=== PATIENT | female | born 1975 | race African-American/Black ===

== ENCOUNTER 2018-05-01 17:34 | Emergency (ER) | payer MEDICARE, MEDICAID ==
[~2018-05-01] VITALS: Ht 165.1 cm; Wt 58.0 kg
[2018-05-01 20:41] LABS: BASOPHILS # (AUTO) 0.1 X10'3 (0-0.2); BASOPHILS % (AUTO) 0.8 % (0-1); EOSINOPHILS # (AUTO) 0.2 X10'3 (0-0.9); EOSINOPHILS % (AUTO) 2.6 % (0-6); HEMATOCRIT 34.6 % (35.0-45.0); HEMOGLOBIN 11.7 g/dl (12.0-16.0); LYMPHOCYTES # (AUTO) 3.5 X10'3 (1.1-4.8); LYMPHOCYTES % (AUTO) 53.3 % (21-51); MEAN CORPUSCULAR HEMOGLOBIN 29.2 PG (27.0-31.0); MEAN CORPUSCULAR HGB CONC 33.7 % (33.0-36.5); MEAN CORPUSCULAR VOLUME 86.8 FL (78-98); MEAN PLATELET VOLUME 9.1 FL (7.4-10.4); MONOCYTES # (AUTO) 0.5 X10'3 (0-0.9); MONOCYTES % (AUTO) 7.5 % (2-12); NEUTROPHILS # (AUTO) 2.4 X10'3 (1.8-7.7); NEUTROPHILS % (AUTO) 35.8 % (42-75); PLATELET COUNT 209 X10'3 (140-440); RED BLOOD COUNT 3.99 X10'6 (4.20-5.60); RED CELL DISTRIBUTION WIDTH 15.1 % (11.5-14.5); WHITE BLOOD COUNT 6.6 X10'3 (4.5-11.0)
[2018-05-01 20:50] LABS: PROTHROMBIN TIME 10.7 SECONDS (9.0-12.0)
[2018-05-01 20:54] LABS: ALANINE AMINOTRANSFERASE 26 U/L (12-78); ALBUMIN 3.4 G/DL (3.4-5.0); ALBUMIN/GLOBULIN RATIO 0.8 (1.1-1.5); ALKALINE PHOSPHATASE 52 IU/L (46-116); ANION GAP 8 (8-16); ASPARTATE AMINO TRANSFERASE 20 U/L (10-37); BILIRUBIN,TOTAL 0.3 MG/DL (0.1-1.0); BLOOD UREA NITROGEN 20 MG/DL (7-18); BUN/CREATININE RATIO 18.7 (6.6-38.0); CALCIUM 8.9 MG/DL (8.5-10.1); CHLORIDE 105 MMOL/L (99-107); CREATININE 1.07 MG/DL (0.40-0.90); SODIUM 141 MMOL/L (135-145); TOTAL CARBON DIOXIDE 28.2 MMOL/L (24-32); TOTAL PROTEIN 7.6 G/DL (6.4-8.2); eGFR 57 ML/MIN
[2018-05-01 21:03] LABS: GLUCOSE 75 MG/DL (70-104)
[2018-05-01 21:21] LABS: URINE HCG NEGATIVE (NEG)
[2018-05-01 21:24] LABS: CLARITY,URINE CLEAR (Clear); COLOR,URINE YELLOW (Yellow); GLUCOSE, URINE NEGATIVE (Neg); KETONES,URINE NEGATIVE (Neg); LEUKOCYTE ESTERASE ,URINE NEGATIVE (Neg); NITRITES, URINE NEGATIVE (Neg); OCCULT BLOOD,URINE LARGE (Neg); PROTEIN,URINE TRACE mg/dl (Neg); UROBILINOGEN,URINE 0.2 E.U/dL (0.2-1.0)
[2018-05-01] MEDS ORDERED: morphine 4 MG/ML inj SYRINge IV ONE (21:25)
[2018-05-01] MEDS ORDERED: ondansetron/PF 4mg/2ml inj IV ONE (21:25)
[2018-05-01 21:28] LABS: UA COLLECTION TYPE CLN CATCH MIDSTREAM
[2018-05-01 21:33] VITALS: BP 185/119
[2018-05-01] MEDS ORDERED: iohexol 300mg/ml 100ml inj. ONE (21:42)
[2018-05-01 22:03] LABS: MUCUS STRANDS MANY /LPF (Neg); SQUAMOUS EPITHELIAL CELL,UR MANY /LPF (FEW)
[2018-05-01 22:04] LABS: TRICHOMONAS,URINE FEW /HPF (NEGATIVE); WBC,URINE 20-30 /HPF (0-4)
[2018-05-01 22:05] LABS: BACTERIA,URINE FEW /HPF (Neg)
[2018-05-01] MEDS ORDERED: HYDR-569 PO (23:15)
== END 2018-05-01 23:36 | disposition home or self-care (01) ==
LOC: ER 17:35
DX: K40.90 Unilateral inguinal hernia, without obstruction or gangrene, not specified as recurrent (principal); I10 Essential (primary) hypertension; F17.200 Nicotine dependence, unspecified, uncomplicated; Z98.51 Tubal ligation status; Z88.8 Allergy status to other drugs, medicaments and biological substances
CPT/HCPCS: 36415; 74177; 80053; 81001; 81025; 85025; 85610; 96374; 96375; 99285; J2270; J2405; J7030; Q9967

== ENCOUNTER 2020-12-09 01:15 | Inpatient (IN) | payer MEDICAID, MEDICARE ==
[2020-12-09] VITALS (9 sets, daily range): BP systolic 137–193; BP diastolic 80–124
[~2020-12-09] VITALS: Ht 165.1 cm; Wt 80.0 kg
[~2020-12-09 01:15] MED LIST: HYDR-4383 PO
--- NOTE | 2020-12-09 03:02 | NUR ---
PER LAB BLOOD NEEDS TO BE REDRAWN
[2020-12-09] MEDS ORDERED: normal saline 1000ML IV soln IV ONE (05:05)
[2020-12-09] MEDS ORDERED: vancomycin/NS 1 GM ADD-VANTAGE 250 ML IV ONE (05:05)
--- NOTE | 2020-12-09 05:19 | NUR ---
ATTEMPTED TO START IV X [address] GARCIA NOTIFIED AND CHARGE NURSE WILL ATTEMPT US GUIDED IV, WHEN ABLE.
[2020-12-09 06:00] LABS: BASOPHILS # (AUTO) 0.1 X10'3 (0-0.2); EOSINOPHILS # (AUTO) 0.1 X10'3 (0-0.9); EOSINOPHILS % (AUTO) 1.2 % (0-6); HEMATOCRIT 26.3 % (35.0-45.0); HEMOGLOBIN 8.6 g/dl (12.0-16.0); LYMPHOCYTES # (AUTO) 2.6 X10'3 (1.1-4.8); LYMPHOCYTES % (AUTO) 25.2 % (21-51); MEAN CORPUSCULAR HEMOGLOBIN 27.3 PG (27.0-31.0); MEAN CORPUSCULAR HGB CONC 32.6 g/dL (33.0-36.5); MEAN CORPUSCULAR VOLUME 83.9 FL (78-98); MEAN PLATELET VOLUME 8.6 FL (7.4-10.4); MONOCYTES # (AUTO) 0.8 X10'3 (0-0.9); MONOCYTES % (AUTO) 7.5 % (2-12); NEUTROPHILS # (AUTO) 6.8 X10'3 (1.8-7.7); NEUTROPHILS % (AUTO) 65.1 % (42-75); PLATELET COUNT 358 X10'3 (140-440); RED BLOOD COUNT 3.14 X10'6 (4.20-5.60); RED CELL DISTRIBUTION WIDTH 15.9 % (11.5-14.5); WHITE BLOOD COUNT 10.4 X10'3 (4.5-11.0)
[2020-12-09 06:11] LABS: PARTIAL THROMBOPLASTIN TIME 29 SECONDS (22-32)
[2020-12-09 06:14] LABS: ALANINE AMINOTRANSFERASE 8 U/L (12-78); ALBUMIN 2.2 G/DL (3.4-5.0); ALBUMIN/GLOBULIN RATIO 0.4 (1.1-1.5); ALKALINE PHOSPHATASE 80 IU/L (46-116); ANION GAP 6 (8-16); ASPARTATE AMINO TRANSFERASE 11 U/L (10-37); BILIRUBIN,TOTAL 0.3 MG/DL (0.1-1.0); BLOOD UREA NITROGEN 10 MG/DL (7-18); BUN/CREATININE RATIO 7.9 (6.6-38.0); CALCIUM 8.4 MG/DL (8.5-10.1); CHLORIDE 102 MMOL/L (99-107); CREATININE 1.27 MG/DL (0.40-0.90); ETHANOL < 0.010 GM/DL (0.0-0.010); GLUCOSE 93 MG/DL (70-104); MAGNESIUM 1.8 MG/DL (1.5-2.4); SODIUM 138 MMOL/L (135-145); TOTAL CARBON DIOXIDE 29.6 MMOL/L (24-32); TOTAL PROTEIN 7.9 G/DL (6.4-8.2); eGFR 56 ML/MIN
[2020-12-09 06:24] LABS: POTASSIUM 2.9 MMOL/L (3.5-5.1)
[2020-12-09] MEDS ORDERED: potassium chloride 10mEq ER tablet PO STA (06:25)
[2020-12-09] MEDS ORDERED: potassium Cl 20 mEq SR tablet PO STA (06:55)
[2020-12-09] MEDS ORDERED: iohexol 350MG/ML 100ml bottle IV ONE (07:05)
--- NOTE | 2020-12-09 07:14 | NUR ---
PT TO CT.
--- NOTE | 2020-12-09 07:32 | NUR ---
pt back in the room.
[2020-12-09 07:48] LABS: URINE AMPHETAMINE SCREEN POSITIVE (Neg); URINE BARBITUATE SCREEN NEGATIVE (Neg); URINE BENZODIAZEPINES SCREEN NEGATIVE (Neg); URINE CANNABINOID SCREEN NEGATIVE (Neg); URINE COCAINE SCREEN NEGATIVE (Neg); URINE METHADONE SCREEN NEGATIVE (Neg); URINE OPIATE SCREEN POSITIVE (Neg); URINE PHENCYCLIDINE SCREEN NEGATIVE (Neg)
[2020-12-09] MEDS ORDERED: piperacillin/tazo 3.375gm/50ml 50 ML IV ONE (07:50)
[2020-12-09] MEDS ORDERED: acetaminophen 325mg tablet PO PRN (08:05)
[2020-12-09] MEDS ORDERED: mag hydrox/Alum hydrox/simeth 30ml oral suspension PO PRN (08:05)
[2020-12-09] MEDS ORDERED: morphine 2 MG/ML inj. syringe IV PRN ×2 (08:05→11:40)
[2020-12-09] MEDS ORDERED: ondansetron/PF 4mg/2ml inj IV PRN ×2 (08:05→11:40)
[2020-12-09] MEDS ORDERED: magnesium hydroxide 30ml (MOM) UD suspension PO PRN (08:05)
--- NOTE | 2020-12-09 08:32 | NUR ---
SOCIAL PROFESSIONALS AT BEDSIDE.
[2020-12-09 09:22] LABS: BASOPHILS % (AUTO) 0.4 % (0-1); EOSINOPHILS # (AUTO) 0.1 X10'3 (0-0.9); EOSINOPHILS % (AUTO) 1.1 % (0-6); HEMATOCRIT 24.8 % (35.0-45.0); LYMPHOCYTES # (AUTO) 2.6 X10'3 (1.1-4.8); LYMPHOCYTES % (AUTO) 23.6 % (21-51); MEAN CORPUSCULAR HGB CONC 32.4 g/dL (33.0-36.5); MEAN CORPUSCULAR VOLUME 83.2 FL (78-98); MEAN PLATELET VOLUME 8.2 FL (7.4-10.4); MONOCYTES # (AUTO) 0.9 X10'3 (0-0.9); MONOCYTES % (AUTO) 7.8 % (2-12); NEUTROPHILS # (AUTO) 7.5 X10'3 (1.8-7.7); NEUTROPHILS % (AUTO) 67.1 % (42-75); PLATELET COUNT 329 X10'3 (140-440); RED BLOOD COUNT 2.98 X10'6 (4.20-5.60); RED CELL DISTRIBUTION WIDTH 15.7 % (11.5-14.5); WHITE BLOOD COUNT 11.2 X10'3 (4.5-11.0)
[2020-12-09] MEDS: normal saline 1000ml 1,000 ML IV SCH ×2 (09:32→21:11)
[2020-12-09 09:44] LABS: ALBUMIN 2.1 G/DL (3.4-5.0); ANION GAP 8 (8-16); BLOOD UREA NITROGEN 9 MG/DL (7-18); CALCIUM 7.8 MG/DL (8.5-10.1); CHLORIDE 103 MMOL/L (99-107); CREATININE 1.13 MG/DL (0.40-0.90); GLUCOSE 89 MG/DL (70-104); POTASSIUM 3.2 MMOL/L (3.5-5.1); SODIUM 140 MMOL/L (135-145); TOTAL CARBON DIOXIDE 28.8 MMOL/L (24-32); eGFR 64 ML/MIN
[2020-12-09] MEDS ORDERED: BUPIVAcaine/PF 2.5 mg/ml (0.25%) 30ml vial ONE (11:35)
--- NOTE | 2020-12-09 11:35 | NUR ---
Called report to Ameya Garsia RN to give report.
[2020-12-09] MEDS ORDERED: ringers solution, lacted 1,000 ML IV SCH (11:40)
[2020-12-09] MEDS ORDERED: proCHLORperazine 10 MG/2 ml inj IV PRN (11:40)
[2020-12-09] MEDS ORDERED: morphine 4 MG/ML inj SYRINge IV PRN (11:40)
[2020-12-09] MEDS ORDERED: meperidine/PF 25mg/ml syringe IV PRN ×3 (11:40)
--- NOTE | 2020-12-09 11:44 | NUR ---
patient to OR.OR staff at bedside.
[2020-12-09] MEDS ORDERED: sevoflurane 250ml liquid IH ONE (12:07)
[2020-12-09] MEDS ORDERED: midazolam 1 mg/ML 2ml injection ONE (12:11)
[2020-12-09] MEDS ORDERED: propofol inj 20 ML IV ONE (12:13)
[2020-12-09] MEDS ORDERED: fentaNYL /PF 50mcg/ml 5ml ampule ONE (12:13)
--- NOTE | 2020-12-09 12:51 | NUR ---
Received from OR via , accompanied by Anesthesiologist DR SHAH and report given by Anesthesiolgist. AWAKENS TO VOICE. VITALS STABLE. DRESSING DI. CEE PAIN.
--- NOTE | 2020-12-09 13:51 | NUR ---
Report called to receiving nurse. Transferred via GURNEY Belongings . Special Issues communicated to receiving nurse. AWAKE AND ORIENTED. VITALS STABLE. DRESSING DI. STATES PAIN IMPROVING. TO ORTHO RM 4008 AT THIS TIME.
--- NOTE | 2020-12-09 14:05 | NUR ---
RECD PT FROM RECOVERY.
--- NOTE | 2020-12-09 15:33 | NUR ---
PAGED DR BROOKS RE: PAGER ID: [phone] MESSAGE: JOSEFA OCHOA. BP 187/117. NO BP MEDS. O/N DULCE 5199
[2020-12-09] MEDS ORDERED: SPIR25TA5 PO (15:36)
[2020-12-09] MEDS ORDERED: BENA40TA9 PO (15:36)
[2020-12-09] MEDS ORDERED: HYDR25TA5 PO (15:36)
[2020-12-09] MEDS ORDERED: CARV25TA2 PO (15:36)
[2020-12-09] MEDS ORDERED: AMLO10TA PO (15:36)
[2020-12-09] MEDS ORDERED: hydrALAZINE 20mg/ml inj. IV ONE (16:05)
[2020-12-09] MEDS: piperacillin/tazo 4.5gm/100ml 100 ML IV SCH (16:44)
[2020-12-09] MEDS: morphine 2 MG/ML inj. syringe IV PRN ×2 (16:46→22:59)
--- NOTE | 2020-12-09 18:36 | NUR ---
Problems reprioritized. Patient report given, questions answered & plan of care reviewed with CHLOE ARECHIGA.
--- NOTE | 2020-12-09 19:07 | NUR ---
Patient in room ORTHO 4007. I have received report from DULCE ARECHIGA and had the opportunity to ask questions and assume patient care.
[2020-12-09] MEDS: carVEDilol 12.5mg tablet PO SCH (19:42)
[2020-12-09] MEDS: vancomycin/NS 1 GM ADD-VANTAGE 250 ML IV SCH (19:42)
[2020-12-09] MEDS: lactobacillus rhamnosus 10,000 MMU CELLS/CAPSULE PO SCH (19:42)
[2020-12-10] MEDS: piperacillin/tazo 4.5gm/100ml 100 ML IV SCH (00:05)
[2020-12-10] MEDS: normal saline 1000ml 1,000 ML IV SCH (00:40)
[2020-12-10 02:00] VITALS: BP 156/81
[2020-12-10] MEDS: morphine 2 MG/ML inj. syringe IV PRN ×2 (05:19→09:04)
[2020-12-10 06:00] VITALS: BP 166/97
--- NOTE | 2020-12-10 06:15 | NUR ---
Problems reprioritized. Patient report given, questions answered & plan of care reviewed with DULCE ARECHIGA.
--- NOTE | 2020-12-10 06:38 | NUR ---
Patient in room ORTHO 4007. I have received report from CHLOE ARECHIGA and had the opportunity to ask questions and assume patient care.
--- NOTE | 2020-12-10 06:47 | NUR ---
PT REFUSING MORNING LAB DRAW. I TRIED TO EDUCATE HER ON THE IMPORTANCE OF LABS VALUES AND MONITORING. SHE STATES SHE WANTS THEM DONE IN AN HOUR. LAB AWARE
[2020-12-10] MEDS ORDERED: HYDROchlorothiazide 25mg tablet PO SCH (08:00)
[2020-12-10] MEDS ORDERED: enoxaparin 40mg/0.4ml syringe SUBCUT SCH (08:00)
[2020-12-10] MEDS ORDERED: lisinopril 20mg tablet PO SCH (08:00)
[2020-12-10] MEDS ORDERED: spironolactone 25 MG tablet PO SCH (08:00)
[2020-12-10] MEDS ORDERED: amLODIPine 5mg tablet PO SCH (08:00)
[2020-12-10] MEDS: vancomycin/NS 1 GM ADD-VANTAGE 250 ML IV SCH (08:34)
[2020-12-10 08:35] VITALS: BP_SYST 166
[2020-12-10] MEDS: carVEDilol 12.5mg tablet PO SCH (08:35)
[2020-12-10] MEDS: lactobacillus rhamnosus 10,000 MMU CELLS/CAPSULE PO SCH (08:35)
[2020-12-10 10:21] LABS: BASOPHILS # (AUTO) 0.1 X10'3 (0-0.2); BASOPHILS % (AUTO) 0.8 % (0-1); EOSINOPHILS # (AUTO) 0.2 X10'3 (0-0.9); EOSINOPHILS % (AUTO) 2.3 % (0-6); HEMATOCRIT 25.8 % (35.0-45.0); HEMOGLOBIN 8.7 g/dl (12.0-16.0); LYMPHOCYTES # (AUTO) 2.9 X10'3 (1.1-4.8); LYMPHOCYTES % (AUTO) 29.7 % (21-51); MEAN CORPUSCULAR HEMOGLOBIN 27.8 PG (27.0-31.0); MEAN CORPUSCULAR HGB CONC 33.5 g/dL (33.0-36.5); MEAN CORPUSCULAR VOLUME 83.1 FL (78-98); MEAN PLATELET VOLUME 8.4 FL (7.4-10.4); MONOCYTES # (AUTO) 0.6 X10'3 (0-0.9); NEUTROPHILS % (AUTO) 61.2 % (42-75); PLATELET COUNT 376 X10'3 (140-440); RED BLOOD COUNT 3.11 X10'6 (4.20-5.60); RED CELL DISTRIBUTION WIDTH 16.2 % (11.5-14.5); WHITE BLOOD COUNT 9.7 X10'3 (4.5-11.0)
[2020-12-10 10:26] LABS: ANION GAP 8 (8-16); BLOOD UREA NITROGEN 8 MG/DL (7-18); BUN/CREATININE RATIO 6.6 (6.6-38.0); CALCIUM 8.1 MG/DL (8.5-10.1); CHLORIDE 105 MMOL/L (99-107); CREATININE 1.21 MG/DL (0.40-0.90); GLUCOSE 116 MG/DL (70-104); SODIUM 140 MMOL/L (135-145); TOTAL CARBON DIOXIDE 27.5 MMOL/L (24-32); eGFR 59 ML/MIN
[2020-12-10 10:29] LABS: POTASSIUM 2.9 MMOL/L (3.5-5.1)
--- NOTE | 2020-12-10 10:41 | NUR ---
PAGED DR BROOKS RE: PAGER ID: [phone] MESSAGE: JOSEFA OCHOA. Karolina 2.9 NO PROTOCOL. AND PT WANTS TO LEAVE AMA. O/N DULCE 6703
[2020-12-10] MEDS ORDERED: magnesium Cl slow-release 64mg tablet PO PRN (10:45)
[2020-12-10] MEDS ORDERED: potassium Cl 40MEQ/1/2NS 520ml 520 ML IV PRN (10:45)
[2020-12-10] MEDS ORDERED: potassium Cl 20 mEq SR tablet PO PRN ×2 (10:45)
[2020-12-10] MEDS ORDERED: magnesium 4gm in 100ml NS 100 ML IV PRN (10:45)
--- NOTE | 2020-12-10 11:03 | NUR ---
NOTIFIED DR BROOKS RE: PAGER ID: [phone] MESSAGE: JOSEFA OCHOA. PT LEFT AMA. DULCE [id number]
--- NOTE | 2020-12-10 11:03 | NUR ---
PT LEFT AMA. STATED THAT SHE NEEDED TO LEAVE BECAUSE SHE NEEDED TO PAY RENT OR SHE WOULD BE HOMELESS. STATES [facility] WILL NOT GIVE HER ANYMORE TIME. I EDUCATED PT ON THE RISKS OF LEAVING AMA, EXPLAINED THAT SHE NEEDS IV ABX AND PAIN CONTROL. HER K IS ALSO CRITICAL 2.9 AND NEEDS TO BE REPLACED. SHE STATES SHE DOESNT CARE ABOUT THAT, SHE JUST NEEDS TO LEAVE. [facility] SHE PAYS RENT AND HER CAR PAYMENT. IV WAS DCd CANULA INTACT, PT AGREEABLE TO ONE DOSE OF K BEFORE LEAVING.
[2020-12-10] MEDS ORDERED: VANCOMYCIN LEVEL IV ONE (19:30)
[2020-12-10] MEDS ORDERED: K and/or MAG REPLACEMENT MC SCH (20:00)
== END 2020-12-10 11:00 | disposition home or self-care (01) | DRG 364 ==
LOC: ER 01:16 → ED HOLD 08:04 → ORTHO 4S 14:10
PROVIDERS: ADMIT Family Medicine; ATTEND Family Medicine
PROC: 0J9G0ZZ Drainage of Right Lower Arm Subcutaneous Tissue and Fascia, Open Approach (ICD-10-PCS; principal; 2020-12-09 12:07)
DX: L03.113 Cellulitis of right upper limb (principal); I11.0 Hypertensive heart disease with heart failure; I50.9 Heart failure, unspecified; E78.00 Pure hypercholesterolemia, unspecified; E78.5 Hyperlipidemia, unspecified; F15.10 Other stimulant abuse, uncomplicated; F17.210 Nicotine dependence, cigarettes, uncomplicated; L02.413 Cutaneous abscess of right upper limb; M60.9 Myositis, unspecified; Z86.718 Personal history of other venous thrombosis and embolism; Z98.51 Tubal ligation status; Z20.822 Contact with and (suspected) exposure to COVID-19
CPT/HCPCS: 36415; 71045; 73206; 80048; 80053; 80305; 80320; 83605; 83735; 83880; 84145; 85025; 85610; 85730; 87040; 87070; 87075; 87077; 87081; 87185; 87186; 87635; 93971; 96365; 99285; A4618; A6222; A6446; A6449; A7000; G0378; J0360; J1650; J2175; J2250; J2270; J2543; J2704; J3010; J3370; J3490; J7030; J7120; Q9967

== ENCOUNTER 2021-04-19 16:39 | Inpatient (IN) | payer MEDICAID ==
[~2021-04-19] VITALS: Ht 165.1 cm; Wt 65.2 kg
[~2021-04-19 16:39] MED LIST changes: +AMLO10TA PO; +BENA40TA9 PO; +CARV25TA2 PO; -HYDR-4383 PO; +HYDR25TA5 PO; +SPIR25TA5 PO
[2021-04-19 17:37] LABS: BASOPHILS # (AUTO) 0.1 X10'3 (0-0.2); BASOPHILS % (AUTO) 0.9 % (0-1); EOSINOPHILS # (AUTO) 0.1 X10'3 (0-0.9); EOSINOPHILS % (AUTO) 1.6 % (0-6); HEMATOCRIT 32.9 % (35.0-45.0); HEMOGLOBIN 10.6 g/dl (12.0-16.0); LYMPHOCYTES # (AUTO) 3.3 X10'3 (1.1-4.8); LYMPHOCYTES % (AUTO) 43.7 % (21-51); MEAN CORPUSCULAR HEMOGLOBIN 26.7 PG (27.0-31.0); MEAN CORPUSCULAR HGB CONC 32.1 g/dL (33.0-36.5); MEAN CORPUSCULAR VOLUME 83.3 FL (78-98); MEAN PLATELET VOLUME 8.6 FL (7.4-10.4); MONOCYTES # (AUTO) 0.3 X10'3 (0-0.9); MONOCYTES % (AUTO) 4.1 % (2-12); NEUTROPHILS # (AUTO) 3.7 X10'3 (1.8-7.7); NEUTROPHILS % (AUTO) 49.7 % (42-75); PLATELET COUNT 288 X10'3 (140-440); RED BLOOD COUNT 3.95 X10'6 (4.20-5.60); RED CELL DISTRIBUTION WIDTH 18.8 % (11.5-14.5); WHITE BLOOD COUNT 7.5 X10'3 (4.5-11.0)
[2021-04-19 17:44] LABS: D-DIMER 1.78 MG/L FEU (0-0.50)
[2021-04-19] MEDS ORDERED: furosemide 10 MG/1 ML 10ml inj IV ONE (17:45)
[2021-04-19] MEDS ORDERED: nitroGLYCERIN 0.4mg SUBLingual tab SL PRN (17:45)
[2021-04-19] MEDS ORDERED: nitroGLYCERIN 1gm ointment UD TP ONE (17:45)
[2021-04-19 17:56] LABS: ALANINE AMINOTRANSFERASE 20 U/L (12-78); ALBUMIN 3.4 G/DL (3.4-5.0); ALBUMIN/GLOBULIN RATIO 0.6 (1.1-1.5); ALKALINE PHOSPHATASE 85 IU/L (46-116); ANION GAP 10 (8-16); ASPARTATE AMINO TRANSFERASE 25 U/L (10-37); BLOOD UREA NITROGEN 25 MG/DL (7-18); CALCIUM 9.1 MG/DL (8.5-10.1); CHLORIDE 102 MMOL/L (99-107); CREATININE 1.78 MG/DL (0.40-0.90); SODIUM 140 MMOL/L (135-145); TOTAL CARBON DIOXIDE 28.5 MMOL/L (24-32); TOTAL PROTEIN 9.3 G/DL (6.4-8.2); eGFR 37 ML/MIN
[2021-04-19] MEDS ORDERED: aspirin 81mg tab.chew PO ONE (18:15)
[2021-04-19 18:46] LABS: GLUCOSE 120 MG/DL (70-104)
[2021-04-19 18:53] LABS: POTASSIUM 2.9 MMOL/L (3.5-5.1)
[2021-04-19] MEDS ORDERED: iohexol 350MG/ML 100ml bottle IV ONE (18:53)
[2021-04-19] MEDS ORDERED: niCARDipine-NS 40mg/200ml IVPB 200 ML IV SCH (19:00)
[2021-04-19] MEDS ORDERED: heparin 10,000 units/1 ML INJ IV ONE ×2 (19:05→19:10)
[2021-04-19] MEDS ORDERED: heparin 10,000 units/1 ML INJ IV PRN (19:10)
[2021-04-19] MEDS ORDERED: potassium Cl 20 mEq SR tablet PO ONE (19:10)
[2021-04-19] MEDS ORDERED: potassium Cl 10 mEq/100mL bag IV ONE (19:10)
[2021-04-19] MEDS ORDERED: magnesium 2GM in 50ml NS 50 ML IV ONE (19:10)
[2021-04-19 19:41] LABS: ANISOCYTOSIS 2+; PLATELET ESTIMATE NORMAL
--- NOTE | 2021-04-19 20:10 | NUR ---
Pt is difficult piv placement d/t hx ivda. Multiple attempts to arms unsuccessful. 2nd attempts at EJ successful, 2G LEJ. Pt will need cardiene and heparin and mg and potassium infusions and will need 2nd line. Multiple attempts in unsuccessful for US placement by hot car charger Patty. ANT Johnson aware. Cardien gtt infusing now.
[2021-04-19 20:29] LABS: PARTIAL THROMBOPLASTIN TIME 26 SECONDS (22-32)
[2021-04-19 20:35] LABS: URINE HCG NEGATIVE (NEG)
[2021-04-19 20:47] LABS: URINE AMPHETAMINE SCREEN POSITIVE (Neg); URINE BARBITUATE SCREEN NEGATIVE (Neg); URINE BENZODIAZEPINES SCREEN NEGATIVE (Neg); URINE CANNABINOID SCREEN NEGATIVE (Neg); URINE COCAINE SCREEN NEGATIVE (Neg); URINE METHADONE SCREEN NEGATIVE (Neg); URINE OPIATE SCREEN POSITIVE (Neg); URINE PHENCYCLIDINE SCREEN NEGATIVE (Neg)
[2021-04-19 20:52] LABS: CLARITY,URINE CLEAR (Clear); COLOR,URINE YELLOW (Yellow); GLUCOSE, URINE NEGATIVE (Neg); KETONES,URINE NEGATIVE (Neg); OCCULT BLOOD,URINE TRACE-INTACT (Neg); PROTEIN,URINE 100 mg/dl (Neg); UA COLLECTION TYPE NON-SPECIFIED
[2021-04-19 20:53] LABS: LEUKOCYTE ESTERASE ,URINE TRACE (Neg); NITRITES, URINE NEGATIVE (Neg)
[2021-04-19] MEDS ORDERED: temazepam 15mg capsule PO PRN (21:00)
[2021-04-19 21:03] LABS: BACTERIA,URINE 1+ /HPF (Neg); MUCUS STRANDS FEW /LPF (Neg); RBC,URINE 0-2 /HPF (0-2); SQUAMOUS EPITHELIAL CELL,UR FEW /LPF (FEW)
[2021-04-19] MEDS ORDERED: diphenhydrAMINE 50 mg/ml inj IV PRN (23:00)
[2021-04-19] MEDS ORDERED: ondansetron/PF 4mg/2ml inj IV PRN (23:00)
[2021-04-19] MEDS ORDERED: HYDROmorphone inj. 0.5 MG/0.5 ML DISP.SYRIN IV PRN (23:00)
[2021-04-19] MEDS ORDERED: morphine 2 MG/ML inj. syringe IV PRN ×2 (23:00)
[2021-04-19] MEDS ORDERED: potassium Cl 40MEQ/1/2NS 520ml 520 ML IV PRN (23:00)
[2021-04-19] MEDS ORDERED: diphenhydrAMINE 25mg capsule PO PRN (23:00)
[2021-04-19] MEDS ORDERED: acetaminophen 650mg rectal suppository RC PRN (23:00)
[2021-04-19] MEDS ORDERED: mag hydrox/Alum hydrox/simeth 30ml oral suspension PO PRN (23:00)
[2021-04-19] MEDS ORDERED: bisacodyl 10mg suppository rectal RC PRN (23:00)
[2021-04-19] MEDS ORDERED: acetaminophen 325mg tablet PO PRN ×2 (23:00)
[2021-04-19] MEDS ORDERED: ondansetron 4mg rapidly disintigrating tab PO PRN (23:00)
[2021-04-19] MEDS ORDERED: magnesium hydroxide 30ml (MOM) UD suspension PO PRN (23:00)
[2021-04-19] MEDS ORDERED: potassium Cl 20 mEq SR tablet PO PRN ×2 (23:00)
[2021-04-19] MEDS ORDERED: HYDROcodone/acetaminophen 5mg/325mg tablet PO PRN (23:00)
[2021-04-19] MEDS ORDERED: nicotine 21mg patch - 24 hr TD ONE (23:05)
[2021-04-19] MEDS: heparin 25,000 UNIT/250ml bag 250 ML IV SCH (23:16)
[2021-04-19 23:23] LABS: HEMOGLOBIN A1C 5.7 % (4.5-6.2)
[2021-04-19 23:32] LABS: PHOSPHORUS 3.6 MG/DL (2.3-4.5)
[2021-04-20] VITALS (15 sets, daily range): BP systolic 134–172; BP diastolic 80–117
--- NOTE | 2021-04-20 00:50 | NUR ---
pt is stable in bed. no acute resp distress noted at this time. gait is steady. Cardizem drip titrated down and stopped. pt blood pressure systolic maintaining between 116-120/ pt is sleeping with with all needs met
[2021-04-20] MEDS: cephalexin 250mg capsule PO SCH ×4 (03:56→23:03)
[2021-04-20 05:50] LABS: BASOPHILS # (AUTO) 0.1 X10'3 (0-0.2); BASOPHILS % (AUTO) 1.2 % (0-1); EOSINOPHILS # (AUTO) 0.2 X10'3 (0-0.9); EOSINOPHILS % (AUTO) 2.4 % (0-6); HEMATOCRIT 31.5 % (35.0-45.0); HEMOGLOBIN 10.2 g/dl (12.0-16.0); LYMPHOCYTES # (AUTO) 2.8 X10'3 (1.1-4.8); LYMPHOCYTES % (AUTO) 35.4 % (21-51); MEAN CORPUSCULAR HEMOGLOBIN 27.1 PG (27.0-31.0); MEAN CORPUSCULAR HGB CONC 32.4 g/dL (33.0-36.5); MEAN CORPUSCULAR VOLUME 83.7 FL (78-98); MONOCYTES # (AUTO) 0.3 X10'3 (0-0.9); MONOCYTES % (AUTO) 3.9 % (2-12); NEUTROPHILS # (AUTO) 4.5 X10'3 (1.8-7.7); NEUTROPHILS % (AUTO) 57.1 % (42-75); PLATELET COUNT 275 X10'3 (140-440); RED BLOOD COUNT 3.76 X10'6 (4.20-5.60); RED CELL DISTRIBUTION WIDTH 18.8 % (11.5-14.5); WHITE BLOOD COUNT 7.8 X10'3 (4.5-11.0)
[2021-04-20 06:08] LABS: ALANINE AMINOTRANSFERASE 18 U/L (12-78); ALBUMIN 2.9 G/DL (3.4-5.0); ALBUMIN/GLOBULIN RATIO 0.5 (1.1-1.5); ALKALINE PHOSPHATASE 76 IU/L (46-116); ANION GAP 9 (8-16); ASPARTATE AMINO TRANSFERASE 22 U/L (10-37); BILIRUBIN,TOTAL 0.9 MG/DL (0.1-1.0); BLOOD UREA NITROGEN 22 MG/DL (7-18); BUN/CREATININE RATIO 15.1 (6.6-38.0); CALCIUM 8.6 MG/DL (8.5-10.1); CHLORIDE 101 MMOL/L (99-107); CHOL/HDL RATIO 3.3 (0.00-4.99); CHOLESTEROL 105 MG/DL (0-200); CREATININE 1.46 MG/DL (0.40-0.90); GLUCOSE 87 MG/DL (70-104); HDL CHOLESTEROL 32 MG/DL (35-60); LDL CHOLESTEROL 58 MG/DL (50-100); SODIUM 142 MMOL/L (135-145); TOTAL CARBON DIOXIDE 31.9 MMOL/L (24-32); TOTAL PROTEIN 8.3 G/DL (6.4-8.2); TRIGLYCERIDES 73 MG/DL (20-135); eGFR 47 ML/MIN
[2021-04-20 06:39] LABS: POTASSIUM 2.5 MMOL/L (3.5-5.1)
[2021-04-20 07:24] LABS: ANISOCYTOSIS 2+; PLATELET ESTIMATE NORMAL
[2021-04-20 07:25] LABS: POLYCHROMASIA FEW
[2021-04-20 07:26] LABS: HYPOCHROMASIA 1+
--- NOTE | 2021-04-20 07:54 | NUR ---
CALL FROM US TO CHANGE ORDER TO VASCULAR FOR DVT
[2021-04-20] MEDS: K and/or MAG REPLACEMENT MC SCH ×2 (08:00→20:00)
[2021-04-20] MEDS: heparin 25,000 UNIT/250ml bag 250 ML IV SCH (08:14)
--- NOTE | 2021-04-20 08:17 | NUR ---
HEPRIN GTT CHANGED TO 930 UNITS WITH 2600UNIT BOLUS FOR PTT OF 40
--- NOTE | 2021-04-20 08:23 | NUR ---
CALL FROM LIZ KIM PT TO HAVE PRESTON SCAN, MAKE PT NPO NOW
[2021-04-20] MEDS ORDERED: aminophylline 250mg/10ml inj. IV PRN (08:25)
[2021-04-20] MEDS ORDERED: regadenoson 0.4mg/5ml syringe IV ONE (08:25)
[2021-04-20] MEDS ORDERED: nitroGLYCERIN 0.4mg SUBLingual tab SL PRN (08:25)
[2021-04-20] MEDS ORDERED: metoprolol tartrate 1mg/ml inj IV PRN (08:25)
[2021-04-20] MEDS: docusate sod 100mg capsule PO SCH ×2 (08:42→20:51)
[2021-04-20] MEDS: amLODIPine 5mg tablet PO SCH (08:42)
[2021-04-20] MEDS: carVEDilol 12.5mg tablet PO SCH ×2 (08:42→20:52)
[2021-04-20] MEDS: lisinopril 20mg tablet PO SCH (08:43)
--- NOTE | 2021-04-20 09:00 | NUR ---
ATTEMPTED TO CALL REPORT, NURSE WILL CALL BACK AFTER MED PASS
--- NOTE | 2021-04-20 09:01 | NUR ---
CALLED PHARM FOR K+ GTT IT IS NOT STOCKED IN [facility]. PHARM WILL BRING IT.
--- NOTE | 2021-04-20 09:22 | NUR ---
VASCULAR AT BS
--- NOTE | 2021-04-20 09:46 | NUR ---
Patient in room ED 8. I have received report from Dariela ARECHIGA and had the opportunity to ask questions and assume patient care.
[2021-04-20] MEDS: potassium Cl 40MEQ/1/2NS 520ml 520 ML IV PRN ×2 (10:49→22:56)
--- NOTE | 2021-04-20 10:51 | NUR ---
vascular finished and nuc med injected, Sonja KIM at bs for assessment
[2021-04-20] MEDS: pantoprazole 40mg Tablet.DR PO SCH (11:17)
[2021-04-20] MEDS: spironolactone 25 MG tablet PO SCH (11:17)
--- NOTE | 2021-04-20 14:31 | NUR ---
Paged Dr. Mcneill PAGER ID: [phone] MESSAGE: U 2013B Myriam, Steve, Gabrielle Scan completed, Currently there are no results posted. Pt would like to know when she can eat. Please advise. I have expressed we need to wait for results. 3534 lAanis ARECHIGA
--- NOTE | 2021-04-20 14:45 | NUR ---
Paged Dr. Mcneill PAGER ID: [phone] MESSAGE: [facility] 2013B Jackson, Steve, Gabrielle Scan results in: No evidence of ischemia Small infarct versus artifactual defect mid inferior wall. Do we need to continue Heparin gtt? or Discontinue Heparin gtt. [id number] Alanis ARECHIGA
--- NOTE | 2021-04-20 18:23 | NUR ---
Problems reprioritized. Patient report given, questions answered & plan of care reviewed with Elsie ARECHIGA.
--- NOTE | 2021-04-20 19:00 | NUR ---
Patient in room PCU 3013. I have received report from PATRICIA ARECHIGA and had the opportunity to ask questions and assume patient care.
[2021-04-20] MEDS: lactobacillus rhamnosus 10,000 MMU CELLS/CAPSULE PO SCH (20:51)
[2021-04-20] MEDS: HYDROcodone/acetaminophen 10/325mg tab PO PRN (20:56)
[2021-04-21 02:00] VITALS: BP_SYST 154; BP_DIAS 101; BP_DIAS 91
[2021-04-21] MEDS: HYDROcodone/acetaminophen 10/325mg tab PO PRN (05:29)
[2021-04-21 06:00] VITALS: BP 171/109
--- NOTE | 2021-04-21 06:24 | NUR ---
Problems reprioritized. Patient report given, questions answered & plan of care reviewed with EVIE ARECHIGA.
[2021-04-21 06:57] LABS: BASOPHILS # (AUTO) 0.1 X10'3 (0-0.2); BASOPHILS % (AUTO) 1.4 % (0-1); EOSINOPHILS # (AUTO) 0.2 X10'3 (0-0.9); EOSINOPHILS % (AUTO) 2.5 % (0-6); HEMATOCRIT 32.5 % (35.0-45.0); HEMOGLOBIN 10.4 g/dl (12.0-16.0); LYMPHOCYTES # (AUTO) 2.6 X10'3 (1.1-4.8); LYMPHOCYTES % (AUTO) 39.4 % (21-51); MEAN CORPUSCULAR HEMOGLOBIN 27.1 PG (27.0-31.0); MEAN CORPUSCULAR HGB CONC 32.1 g/dL (33.0-36.5); MEAN CORPUSCULAR VOLUME 84.6 FL (78-98); MEAN PLATELET VOLUME 9.2 FL (7.4-10.4); MONOCYTES # (AUTO) 0.3 X10'3 (0-0.9); MONOCYTES % (AUTO) 5.1 % (2-12); NEUTROPHILS # (AUTO) 3.5 X10'3 (1.8-7.7); NEUTROPHILS % (AUTO) 51.6 % (42-75); PLATELET COUNT 262 X10'3 (140-440); RED BLOOD COUNT 3.84 X10'6 (4.20-5.60); RED CELL DISTRIBUTION WIDTH 19.3 % (11.5-14.5); WHITE BLOOD COUNT 6.7 X10'3 (4.5-11.0)
[2021-04-21 07:17] LABS: ALANINE AMINOTRANSFERASE 17 U/L (12-78); ALBUMIN 2.6 G/DL (3.4-5.0); ALBUMIN/GLOBULIN RATIO 0.5 (1.1-1.5); ALKALINE PHOSPHATASE 64 IU/L (46-116); ANION GAP 7 (8-16); ASPARTATE AMINO TRANSFERASE 24 U/L (10-37); BILIRUBIN,TOTAL 0.4 MG/DL (0.1-1.0); BLOOD UREA NITROGEN 31 MG/DL (7-18); BUN/CREATININE RATIO 17.7 (6.6-38.0); CALCIUM 8.3 MG/DL (8.5-10.1); CHLORIDE 104 MMOL/L (99-107); CREATININE 1.75 MG/DL (0.40-0.90); GLUCOSE 99 MG/DL (70-104); POTASSIUM 3.7 MMOL/L (3.5-5.1); SODIUM 139 MMOL/L (135-145); TOTAL CARBON DIOXIDE 28.3 MMOL/L (24-32); TOTAL PROTEIN 7.5 G/DL (6.4-8.2); eGFR 38 ML/MIN
[2021-04-21] MEDS: carVEDilol 12.5mg tablet PO SCH (07:17)
[2021-04-21] MEDS: lactobacillus rhamnosus 10,000 MMU CELLS/CAPSULE PO SCH (07:17)
[2021-04-21] MEDS: spironolactone 25 MG tablet PO SCH (07:18)
[2021-04-21] MEDS: amLODIPine 5mg tablet PO SCH (07:18)
[2021-04-21] MEDS: pantoprazole 40mg Tablet.DR PO SCH (07:18)
[2021-04-21] MEDS: lisinopril 20mg tablet PO SCH (07:18)
[2021-04-21] MEDS: cephalexin 250mg capsule PO SCH (07:19)
[2021-04-21] MEDS: docusate sod 100mg capsule PO SCH (07:22)
[2021-04-21 07:43] LABS: ANISOCYTOSIS 2+; HYPOCHROMASIA 1+; PLATELET ESTIMATE NORMAL
[2021-04-21] MEDS: K and/or MAG REPLACEMENT MC SCH (08:00)
[2021-04-21 08:56] VITALS: BP 155/100
[2021-04-21 11:00] VITALS: BP 143/102
[2021-04-21] MEDS ORDERED: CEPH250C PO (13:22)
[2021-04-21] MEDS ORDERED: LACT1CAP26 PO (13:22)
[2021-04-21] MEDS ORDERED: APIX5TAB3 PO (13:22)
[2021-04-21] MEDS ORDERED: FURO-150 PO (13:31)
--- NOTE | 2021-04-21 13:32 | NUR ---
Page to Dr. Mcneill [id number] [place]- Not on blood thinner for PEs. Need tele renewal order. Yee [id number]
--- NOTE | 2021-04-21 14:23 | NUR ---
Patient being sent home with Anthony
[2021-04-21] MEDS ORDERED: BENA40TA8 PO (14:29)
[2021-04-21] MEDS ORDERED: SPIR25TA5 PO (14:29)
[2021-04-21] MEDS ORDERED: AMLO5TAB4 PO (14:29)
[2021-04-21] MEDS ORDERED: CARV-49 PO (14:29)
--- NOTE | 2021-04-21 15:36 | NUR ---
Patient stable for discharge. welfare case worker talked with patient on the phone before discharge regarding resources for living. Patient states she does not have any home medications. Dr. Mcneill made aware and states to call in her home medications. [facility] off [address] was called and they said Eliquis, Cephalexin, Furosemide, and Lactobacillus are available for fruit or nut picker. The pharmacist was not available to take call in prescriptions at this time for her Amlodipine, Benazepril, Carvedilol, and Spironolactone, so they said to leave a voicemessage of the prescriptions. Voicemail was left for the pharmacist. PIV was removed on ANT and left neck with catheter intact. Tele monitor removed. Patient transferred off unit with all personal belongings to personal vehicle.
== END 2021-04-21 15:25 | disposition home or self-care (01) | DRG 134 ==
LOC: ER 16:39 → ED HOLD 23:00 → PCU 3S 04-20 11:00
PROVIDERS: ADMIT Family Medicine; ATTEND Internal Medicine
PROC: B32T1ZZ Computerized Tomography (CT Scan) of Left Pulmonary Artery using Low Osmolar Contrast (ICD-10-PCS; principal; 2021-04-19)
PROC: B3201ZZ Computerized Tomography (CT Scan) of Thoracic Aorta using Low Osmolar Contrast (ICD-10-PCS; 2021-04-19)
PROC: B32S1ZZ Computerized Tomography (CT Scan) of Right Pulmonary Artery using Low Osmolar Contrast (ICD-10-PCS; 2021-04-19)
PROC: 4A02XM4 Measurement of Cardiac Total Activity, External Approach (ICD-10-PCS; 2021-04-20)
PROC: 3E073KZ Introduction of Other Diagnostic Substance into Coronary Artery, Percutaneous Approach (ICD-10-PCS; 2021-04-20)
DX: I26.94 Multiple subsegmental thrombotic pulmonary emboli without acute cor pulmonale (principal); I21.A1 Myocardial infarction type 2; I50.23 Acute on chronic systolic (congestive) heart failure; N17.9 Acute kidney failure, unspecified; I27.29 Other secondary pulmonary hypertension; I42.9 Cardiomyopathy, unspecified; I13.0 Hypertensive heart and chronic kidney disease with heart failure and stage 1 through stage 4 chronic kidney disease, or unspecified chronic kidney disease; D64.9 Anemia, unspecified; E78.00 Pure hypercholesterolemia, unspecified; E78.5 Hyperlipidemia, unspecified; E87.6 Hypokalemia; F15.10 Other stimulant abuse, uncomplicated; F17.210 Nicotine dependence, cigarettes, uncomplicated; I08.1 Rheumatic disorders of both mitral and tricuspid valves; I16.1 Hypertensive emergency; F41.9 Anxiety disorder, unspecified; N18.9 Chronic kidney disease, unspecified; Z20.822 Contact with and (suspected) exposure to COVID-19; J44.9 Chronic obstructive pulmonary disease, unspecified; N39.0 Urinary tract infection, site not specified; I27.81 Cor pulmonale (chronic); R09.02 Hypoxemia; Z59.0 Homelessness; Z79.01 Long term (current) use of anticoagulants; Z79.899 Other long term (current) drug therapy; Z86.718 Personal history of other venous thrombosis and embolism; Z87.440 Personal history of urinary (tract) infections; Z91.14 Patient's other noncompliance with medication regimen; Z91.19 Patient's noncompliance with other medical treatment and regimen; Z98.51 Tubal ligation status; Z71.51 Drug abuse counseling and surveillance of drug abuser; Z71.6 Tobacco abuse counseling
CPT/HCPCS: 36415; 71045; 71275; 78452; 80053; 80061; 80305; 81001; 81025; 83036; 83735; 83880; 84100; 84132; 84443; 84484; 85008; 85025; 85379; 85730; 87088; 87635; 93005; 93017; 93306; 93970; 96374; 96375; 99285; A9500; G0378; J0280; J1644; J1940; J2785; J3475; J3480; Q9967

== ENCOUNTER 2021-07-24 23:50 | Emergency (ER) | payer MEDICAID ==
[~2021-07-24] VITALS: Ht 170.2 cm; Wt 68.2 kg
[~2021-07-24 23:50] MED LIST changes: +AMLO5TAB4 PO; +APIX5TAB3 PO; +BENA40TA46 PO; -BENA40TA9 PO; +BENA40TA90 PO; +CARV-49 PO; +CEPH250C PO; +FURO-150 PO; -HYDR25TA5 PO; +LACT1CAP26 PO
[2021-07-25 00:11] VITALS: BP 179/133
[2021-07-25] MEDS ORDERED: APIX5TAB3 PO (10:51)
[2021-07-25] MEDS ORDERED: FURO20TA4 PO (10:51)
== END 2021-07-25 03:07 | disposition left against medical advice (07) ==
LOC: ER 23:50
DX: R06.02 Shortness of breath (principal); Z53.21 Procedure and treatment not carried out due to patient leaving prior to being seen by health care provider
CPT/HCPCS: 71045; 93005

== ENCOUNTER 2021-08-14 19:59 | Inpatient (IN) | payer MEDICAID ==
[~2021-08-14] VITALS: Ht 165.1 cm; Wt 65.0 kg
[~2021-08-14 19:59] MED LIST changes: -AMLO5TAB4 PO; -BENA40TA90 PO; -CARV-49 PO; -CEPH250C PO; -FURO-150 PO; +FURO20TA4 PO; -LACT1CAP26 PO
[2021-08-14] MEDS ORDERED: hyDRALAzine 10mg tablet PO ONE (22:00)
[2021-08-14] MEDS ORDERED: furosemide 10 MG/1 ML 10ml inj IV ONE (22:00)
[2021-08-14] MEDS ORDERED: hyDRALAzine 10mg tablet PO SCH (22:00)
[2021-08-14] MEDS ORDERED: carVEDilol 12.5mg tablet PO ONE (22:00)
[2021-08-14] MEDS ORDERED: carVEDilol 12.5mg tablet PO SCH (22:00)
[2021-08-14] MEDS ORDERED: morphine 4 MG/ML inj SYRINge IM ONE (22:55)
[2021-08-14] MEDS ORDERED: ondansetron 4mg rapidly disintigrating tab PO ONE (22:55)
[2021-08-14] MEDS ORDERED: azithromycin/NS 500mg/250ml 250 ML IV ONE (23:00)
[2021-08-14] MEDS ORDERED: CefTRIAXone/D5W-Rocephin 1gm 50 ML IV ONE (23:00)
[2021-08-15] MEDS ORDERED: furosemide 40mg/4ml inj IV ONE (03:45)
[2021-08-15 03:56] LABS: BASOPHILS # (AUTO) 0.1 X10'3 (0-0.2); BASOPHILS % (AUTO) 0.7 % (0-1); EOSINOPHILS % (AUTO) 0.3 % (0-6); HEMATOCRIT 31.6 % (35.0-45.0); HEMOGLOBIN 10.1 g/dl (12.0-16.0); LYMPHOCYTES # (AUTO) 1.9 X10'3 (1.1-4.8); MEAN CORPUSCULAR HEMOGLOBIN 26.2 PG (27.0-31.0); MEAN CORPUSCULAR HGB CONC 31.8 g/dL (33.0-36.5); MEAN CORPUSCULAR VOLUME 82.2 FL (78-98); MEAN PLATELET VOLUME 8.5 FL (7.4-10.4); MONOCYTES # (AUTO) 0.2 X10'3 (0-0.9); MONOCYTES % (AUTO) 2.6 % (2-12); NEUTROPHILS # (AUTO) 5.3 X10'3 (1.8-7.7); NEUTROPHILS % (AUTO) 70.4 % (42-75); PLATELET COUNT 315 X10'3 (140-440); RED BLOOD COUNT 3.85 X10'6 (4.20-5.60); RED CELL DISTRIBUTION WIDTH 19.1 % (11.5-14.5); WHITE BLOOD COUNT 7.5 X10'3 (4.5-11.0)
[2021-08-15 04:15] LABS: ALANINE AMINOTRANSFERASE 22 U/L (12-78); ALBUMIN 2.8 G/DL (3.4-5.0); ALBUMIN/GLOBULIN RATIO 0.5 (1.1-1.5); ALKALINE PHOSPHATASE 72 IU/L (46-116); ANION GAP 8 (8-16); ASPARTATE AMINO TRANSFERASE 28 U/L (10-37); BILIRUBIN,TOTAL 1.4 MG/DL (0.1-1.0); BLOOD UREA NITROGEN 26 MG/DL (7-18); BUN/CREATININE RATIO 18.3 (6.6-38.0); CALCIUM 8.8 MG/DL (8.5-10.1); CHLORIDE 100 MMOL/L (99-107); CREATININE 1.42 MG/DL (0.40-0.90); GLUCOSE 116 MG/DL (70-104); MAGNESIUM 2.2 MG/DL (1.5-2.4); SODIUM 140 MMOL/L (135-145); TOTAL PROTEIN 7.9 G/DL (6.4-8.2); eGFR 49 ML/MIN
[2021-08-15 04:19] LABS: POTASSIUM 2.5 MMOL/L (3.5-5.1)
[2021-08-15] MEDS ORDERED: aspirin 325mg tablet PO ONE (04:20)
[2021-08-15] MEDS ORDERED: potassium Cl 20 mEq SR tablet PO STA (04:22)
[2021-08-15 04:41] LABS: ANISOCYTOSIS 2+; PLATELET ESTIMATE NORMAL
[2021-08-15 04:42] LABS: HYPOCHROMASIA 1+
[2021-08-15 04:43] LABS: POLYCHROMASIA FEW
[2021-08-15 04:48] LABS: CLARITY,URINE CLOUDY (Clear); COLOR,URINE YELLOW (Yellow); GLUCOSE, URINE NEGATIVE (Neg); KETONES,URINE NEGATIVE (Neg); LEUKOCYTE ESTERASE ,URINE NEGATIVE (Neg); NITRITES, URINE NEGATIVE (Neg); OCCULT BLOOD,URINE TRACE-INTACT (Neg); PH,URINE 6.5 (4.8-8.0); PROTEIN,URINE >=300 mg/dl (Neg)
[2021-08-15 04:49] LABS: UA COLLECTION TYPE CLN CATCH MIDSTREAM
[2021-08-15] MEDS ORDERED: potassium Cl 20 mEq SR tablet PO PRN ×2 (04:50)
[2021-08-15] MEDS ORDERED: magnesium 4gm in 100ml NS 100 ML IV PRN (04:50)
[2021-08-15] MEDS ORDERED: PERFLUTREN PROTEIN-A MICROSPHR (Optison) 0.22 MG/ML 3ML VIAL IV ONE (04:50)
[2021-08-15] MEDS ORDERED: acetaminophen 325mg tablet PO PRN ×2 (04:50)
[2021-08-15] MEDS ORDERED: ondansetron/PF 4mg/2ml inj IV PRN (04:50)
[2021-08-15] MEDS ORDERED: magnesium hydroxide 30ml (MOM) UD suspension PO PRN (04:50)
[2021-08-15] MEDS ORDERED: mag hydrox/Alum hydrox/simeth 30ml oral suspension PO PRN (04:50)
[2021-08-15] MEDS ORDERED: magnesium 2GM in 50ml NS 50 ML IV PRN (04:50)
[2021-08-15] MEDS ORDERED: HYDROcodone/acetaminophen 5mg/325mg tablet PO PRN (04:50)
[2021-08-15] MEDS ORDERED: HYDROcodone/acetaminophen 10/325mg tab PO PRN (04:50)
[2021-08-15 04:55] LABS: BACTERIA,URINE 2+ /HPF (Neg); MUCUS STRANDS FEW /LPF (Neg); SQUAMOUS EPITHELIAL CELL,UR MODERATE /LPF (FEW); TRANSITIONAL EPI CELLS,URINE FEW /HPF
[2021-08-15 04:56] LABS: FINE GRANULAR CAST 0-3 /LPF (NEGATIVE)
[2021-08-15 04:57] LABS: URINE AMPHETAMINE SCREEN POSITIVE (Neg); URINE BARBITUATE SCREEN NEGATIVE (Neg); URINE BENZODIAZEPINES SCREEN NEGATIVE (Neg); URINE CANNABINOID SCREEN NEGATIVE (Neg); URINE COCAINE SCREEN NEGATIVE (Neg); URINE METHADONE SCREEN NEGATIVE (Neg); URINE OPIATE SCREEN POSITIVE (Neg); URINE PHENCYCLIDINE SCREEN NEGATIVE (Neg)
--- NOTE | 2021-08-15 05:10 | NUR ---
Notified Dr Lino of patient's elevated BP. Doctor gave order for dose of 4mg Morphine. Doctor aware of BP coming down to 172/131 - doctor expressed this was okay and to wait for further blood pressure medication scheduled for this morning.
[2021-08-15] MEDS ORDERED: morphine 4 MG/ML inj SYRINge IM ONE (05:15)
[2021-08-15] MEDS ORDERED: morphine 4 MG/ML inj SYRINge IV PRN (05:40)
--- NOTE | 2021-08-15 06:40 | NUR ---
ASSUMED CARE OF PT. WENT IN TO INTRODUCE SELF TO PT AND PT SEEN LAYING SIDEWAYS IN THE BED AND BED SHEET SOAKED WITH URINE. INFORMED PT OF FINDINGS AND NEED TO DO MORNING VITALS AND PT REFUSED. STATES SHE DOESNT WANT TO GET UP RIGHT NOW AND DOESNT WANT VITALS, "MAYBE LATER." EDUCATED PT IT IS UNSAFE AND UNHYGENIC TO LAY IN SHEETS COVERED WITH URINE AND IS AT RISK FOR SKIN BREAKDOWN AND INFECTION. PT REPLIED "I DONT CARE I'M NOT GETTING UP RIGHT NOW." EDUCATED THAT HER BLOOD PRESSURE HAS BEEN HIGH AND THIS DYE BOARDING MACHINE OPERATOR WOULD LIKE TO ASSESS HER AND HER VITALS. PT CONTINUED TO REFUSE SAYING "NOT RIGHT NOW."
[2021-08-15] MEDS: potassium CL 10mEq/100ml bag 100 ML IV PRN ×2 (07:35→08:44)
[2021-08-15] MEDS ORDERED: carVEDilol 12.5mg tablet PO SCH (08:00)
[2021-08-15] MEDS ORDERED: K and/or MAG REPLACEMENT MC SCH (08:00)
[2021-08-15] MEDS ORDERED: amLODIPine 5mg tablet PO SCH (08:00)
[2021-08-15] MEDS ORDERED: spironolactone 25 MG tablet PO SCH (08:00)
[2021-08-15] MEDS ORDERED: furosemide 40mg/4ml inj IV SCH (08:00)
[2021-08-15] MEDS ORDERED: apixaban 5mg tablet PO SCH (08:00)
[2021-08-15] MEDS ORDERED: docusate sod 100mg capsule PO SCH (08:00)
[2021-08-15] MEDS ORDERED: nicotine 21mg patch - 24 hr TD SCH (08:00)
[2021-08-15] MEDS ORDERED: lisinopril 20mg tablet PO SCH (08:00)
[2021-08-15 10:17] LABS: POTASSIUM 3.3 MMOL/L (3.5-5.1)
[2021-08-15 11:49] VITALS: BP 145/97
--- NOTE | 2021-08-15 13:34 | NUR ---
NOTIFIED DR NEWTON THAT PT WANT TO LEAVE AMA PER MD TELL THE PT MD WILL HERE IN FEW MINS,NOTIFIED THE PT PT SAID "I WANT TO LEAVE TAKE THAT IV OUT ,I CAN'T WAIT".
== END 2021-08-15 16:00 | disposition left against medical advice (07) | DRG 194 ==
LOC: ER 20:00 → ED HOLD 08-15 04:55
PROVIDERS: ADMIT Family Medicine; ATTEND Internal Medicine
DX: I13.0 Hypertensive heart and chronic kidney disease with heart failure and stage 1 through stage 4 chronic kidney disease, or unspecified chronic kidney disease (principal); I21.A1 Myocardial infarction type 2; I50.23 Acute on chronic systolic (congestive) heart failure; E78.00 Pure hypercholesterolemia, unspecified; E78.5 Hyperlipidemia, unspecified; F17.210 Nicotine dependence, cigarettes, uncomplicated; N18.30 Chronic kidney disease, stage 3 unspecified; F41.9 Anxiety disorder, unspecified; F15.10 Other stimulant abuse, uncomplicated; D64.9 Anemia, unspecified; E87.6 Hypokalemia; Z53.29 Procedure and treatment not carried out because of patient's decision for other reasons; I16.1 Hypertensive emergency; Z82.49 Family history of ischemic heart disease and other diseases of the circulatory system; Z86.711 Personal history of pulmonary embolism; Z86.718 Personal history of other venous thrombosis and embolism; Z91.14 Patient's other noncompliance with medication regimen; Z91.19 Patient's noncompliance with other medical treatment and regimen; Z98.51 Tubal ligation status; Z79.899 Other long term (current) drug therapy; Z71.6 Tobacco abuse counseling; Z71.51 Drug abuse counseling and surveillance of drug abuser
CPT/HCPCS: 36415; 71045; 80053; 80305; 81001; 83735; 83880; 84132; 84484; 85008; 85025; 87088; 93005; 93306; 96372; 96374; 96375; 99285; G0378; J0456; J0696; J1940; J2270; J3480

== ENCOUNTER 2021-09-06 10:29 | Inpatient (IN) | payer MEDICAID ==
[~2021-09-06] VITALS: Ht 165.1 cm; Wt 70.3 kg
[2021-09-06 11:33] LABS: BASOPHILS # (AUTO) 0.1 X10'3 (0-0.2); BASOPHILS % (AUTO) 0.9 % (0-1); EOSINOPHILS % (AUTO) 0.4 % (0-6); HEMATOCRIT 41.5 % (35.0-45.0); HEMOGLOBIN 13.1 g/dl (12.0-16.0); LYMPHOCYTES % (AUTO) 37.5 % (21-51); MEAN CORPUSCULAR HEMOGLOBIN 25.7 PG (27.0-31.0); MEAN CORPUSCULAR HGB CONC 31.4 g/dL (33.0-36.5); MEAN CORPUSCULAR VOLUME 81.6 FL (78-98); MEAN PLATELET VOLUME 8.4 FL (7.4-10.4); MONOCYTES # (AUTO) 0.2 X10'3 (0-0.9); MONOCYTES % (AUTO) 2.5 % (2-12); NEUTROPHILS # (AUTO) 4.7 X10'3 (1.8-7.7); NEUTROPHILS % (AUTO) 58.7 % (42-75); PLATELET COUNT 353 X10'3 (140-440); RED BLOOD COUNT 5.09 X10'6 (4.20-5.60); RED CELL DISTRIBUTION WIDTH 19.1 % (11.5-14.5)
[2021-09-06 11:49] LABS: ALANINE AMINOTRANSFERASE 27 U/L (12-78); ALBUMIN 3.4 G/DL (3.4-5.0); ALBUMIN/GLOBULIN RATIO 0.6 (1.1-1.5); ALKALINE PHOSPHATASE 103 IU/L (46-116); ANION GAP 9 (8-16); ASPARTATE AMINO TRANSFERASE 33 U/L (10-37); BILIRUBIN,TOTAL 1.8 MG/DL (0.1-1.0); BLOOD UREA NITROGEN 35 MG/DL (7-18); BUN/CREATININE RATIO 22.3 (6.6-38.0); CALCIUM 9.7 MG/DL (8.5-10.1); CHLORIDE 96 MMOL/L (99-107); CREATININE 1.57 MG/DL (0.40-0.90); GLUCOSE 113 MG/DL (70-104); POTASSIUM 3.3 MMOL/L (3.5-5.1); SODIUM 133 MMOL/L (135-145); TOTAL PROTEIN 9.4 G/DL (6.4-8.2); eGFR 43 ML/MIN
[2021-09-06 12:28] LABS: ANISOCYTOSIS 2+; PLATELET ESTIMATE NORMAL
[2021-09-06 12:29] LABS: LARGE PLATELETS FEW
[2021-09-06] MEDS ORDERED: furosemide 40mg/4ml inj IV ONE (14:35)
[2021-09-06] MEDS ORDERED: metoprolol tartrate 1mg/ml inj IV ONE (14:35)
[2021-09-06] MEDS ORDERED: CARV25TA2 PO (15:27)
[2021-09-06] MEDS ORDERED: FURO-150 PO (15:27)
[2021-09-06] MEDS ORDERED: APIX5TAB3 PO (15:27)
[2021-09-06] MEDS ORDERED: BENA40TA45 PO (15:27)
[2021-09-06] MEDS ORDERED: magnesium hydroxide 30ml (MOM) UD suspension PO PRN (16:05)
[2021-09-06] MEDS ORDERED: ondansetron/PF 4mg/2ml inj IV PRN (16:05)
[2021-09-06] MEDS ORDERED: HYDROcodone/acetaminophen 10/325mg tab PO PRN (16:05)
[2021-09-06] MEDS ORDERED: acetaminophen 325mg tablet PO PRN ×2 (16:05)
[2021-09-06] MEDS ORDERED: HYDROcodone/acetaminophen 5mg/325mg tablet PO PRN (16:05)
[2021-09-06] MEDS ORDERED: mag hydrox/Alum hydrox/simeth 30ml oral suspension PO PRN (16:05)
[2021-09-06] MEDS ORDERED: morphine 2 MG/ML inj. syringe IV PRN ×2 (16:05)
--- NOTE | 2021-09-06 16:47 | NUR ---
PT TO/FROM [facility] INDEPENDENTLY
--- NOTE | 2021-09-06 17:35 | NUR ---
lab called [facility] 6hr [address] carbajal
[2021-09-06] MEDS: docusate sod 100mg capsule PO SCH (20:00)
[2021-09-06] MEDS: apixaban 5mg tablet PO SCH (20:20)
[2021-09-06] MEDS: carVEDilol 12.5mg tablet PO SCH (20:20)
[2021-09-06] MEDS: furosemide 40mg/4ml inj IV SCH (20:21)
[2021-09-06] MEDS ORDERED: temazepam 15mg capsule PO PRN (21:20)
[2021-09-06] MEDS ORDERED: LORazepam 0.5 MG tablet PO PRN (21:20)
[2021-09-07 00:35] VITALS: BP 153/105
--- NOTE | 2021-09-07 00:35 | NUR ---
patient received to floor. See admission assessment
--- NOTE | 2021-09-07 01:50 | NUR ---
PAGER ID: [phone] MESSAGE: Patient Myriam Price [id number] adm for decompensated HR BP is 153/105 HR 80-90Sat 97 RA. Denies Blurry vision, headache . + C/[place] [id number]. Ativan 0.5mg tab now. Restoril 4hr ago. Please need your best advice?
--- NOTE | 2021-09-07 01:50 | NUR ---
Page sent out to Dr. Asher about patient BP 153/103 HR 90. and worsening of pain upon admission to pcu. Patient C/O pain of 10/10 after 2mg of morphine at 0038, Ativan 0.5mg tab 0141, HS Restoril 4hr ago in the ED. patient states she has not slept for a few days now. Patient RR and HR remain stable. patient is currently sitting in bed. All safety measures implemented. Will continue monitor patient
[2021-09-07 02:00] VITALS: BP 158/103
[2021-09-07] MEDS ORDERED: HYDROmorphone inj. 0.5 MG/0.5 ML DISP.SYRIN IV PRN (02:35)
[2021-09-07 06:00] VITALS: BP 132/114
[2021-09-07] MEDS ORDERED: lisinopril 20mg tablet PO SCH (08:00)
[2021-09-07 08:04] LABS: BASOPHILS # (AUTO) 0.1 X10'3 (0-0.2); EOSINOPHILS # (AUTO) 0.1 X10'3 (0-0.9); EOSINOPHILS % (AUTO) 1.1 % (0-6); HEMOGLOBIN 9.9 g/dl (12.0-16.0); LYMPHOCYTES # (AUTO) 3.2 X10'3 (1.1-4.8); LYMPHOCYTES % (AUTO) 41.7 % (21-51); MEAN CORPUSCULAR HEMOGLOBIN 25.9 PG (27.0-31.0); MEAN CORPUSCULAR HGB CONC 31.9 g/dL (33.0-36.5); MEAN CORPUSCULAR VOLUME 81.1 FL (78-98); MEAN PLATELET VOLUME 8.9 FL (7.4-10.4); MONOCYTES # (AUTO) 0.3 X10'3 (0-0.9); MONOCYTES % (AUTO) 4.1 % (2-12); NEUTROPHILS % (AUTO) 52.1 % (42-75); PLATELET COUNT 295 X10'3 (140-440); RED BLOOD COUNT 3.83 X10'6 (4.20-5.60); RED CELL DISTRIBUTION WIDTH 18.6 % (11.5-14.5); WHITE BLOOD COUNT 7.8 X10'3 (4.5-11.0)
[2021-09-07] MEDS: apixaban 5mg tablet PO SCH (08:22)
[2021-09-07] MEDS: furosemide 40mg/4ml inj IV SCH (08:22)
[2021-09-07] MEDS: carVEDilol 12.5mg tablet PO SCH (08:23)
[2021-09-07 08:26] LABS: ALBUMIN 2.3 G/DL (3.4-5.0); ANION GAP 7 (8-16); BLOOD UREA NITROGEN 50 MG/DL (7-18); BUN/CREATININE RATIO 26.5 (6.6-38.0); CALCIUM 8.2 MG/DL (8.5-10.1); CHLORIDE 102 MMOL/L (99-107); CREATININE 1.89 MG/DL (0.40-0.90); GLUCOSE 113 MG/DL (70-104); POTASSIUM 3.7 MMOL/L (3.5-5.1); SODIUM 138 MMOL/L (135-145); TOTAL CARBON DIOXIDE 29.2 MMOL/L (24-32); eGFR 35 ML/MIN
[2021-09-07] MEDS: docusate sod 100mg capsule PO SCH (08:28)
[2021-09-07 11:00] VITALS: BP 149/115
--- NOTE | 2021-09-07 13:34 | NUR ---
positive for MRSA on nasal swab... notified. PAGER ID: [phone] MESSAGE: [id number]-GABRIELA: doc, just to inform you that laboratory called to inform us that patient is (+) for MRSA on her nasal swab.
[2021-09-07 15:00] VITALS: BP 145/104
[2021-09-07] MEDS ORDERED: POTA-207 PO (15:07)
[2021-09-07] MEDS ORDERED: CARV25TA2 PO (15:07)
[2021-09-07] MEDS ORDERED: APIX5TAB3 PO (15:07)
[2021-09-07] MEDS ORDERED: FURO-150 PO (15:07)
[2021-09-07] MEDS ORDERED: BENA40TA45 PO (15:07)
--- NOTE | 2021-09-07 15:47 | NUR ---
discharge instructions were given and explained to patient, iv access discontinued with cannula tip complete and intact.
== END 2021-09-07 15:45 | disposition home or self-care (01) | DRG 194 ==
LOC: ER 10:30 → ED HOLD 16:04 → PCU 3S 09-07 00:32
PROVIDERS: ADMIT Internal Medicine; ATTEND Family Medicine
DX: I13.0 Hypertensive heart and chronic kidney disease with heart failure and stage 1 through stage 4 chronic kidney disease, or unspecified chronic kidney disease (principal); I21.A1 Myocardial infarction type 2; I42.9 Cardiomyopathy, unspecified; Z20.822 Contact with and (suspected) exposure to COVID-19; E78.00 Pure hypercholesterolemia, unspecified; I50.23 Acute on chronic systolic (congestive) heart failure; I16.1 Hypertensive emergency; N17.9 Acute kidney failure, unspecified; F15.10 Other stimulant abuse, uncomplicated; F41.9 Anxiety disorder, unspecified; F17.210 Nicotine dependence, cigarettes, uncomplicated; N18.30 Chronic kidney disease, stage 3 unspecified; Z79.01 Long term (current) use of anticoagulants; Z86.711 Personal history of pulmonary embolism; Z98.51 Tubal ligation status; Z88.8 Allergy status to other drugs, medicaments and biological substances; Z86.718 Personal history of other venous thrombosis and embolism; Z91.19 Patient's noncompliance with other medical treatment and regimen; Z79.899 Other long term (current) drug therapy
CPT/HCPCS: 36415; 71045; 80048; 80053; 83880; 84484; 85008; 85025; 85610; 87081; 87635; 93005; 96374; 96375; 99285; G0378; J1170; J1940; J2270; J2405; J3490

== ENCOUNTER 2021-09-29 12:49 | Emergency (ER) | payer MEDICAID ==
[~2021-09-29] VITALS: Ht 165.1 cm; Wt 88.0 kg
[~2021-09-29 12:49] MED LIST changes: -AMLO10TA PO; +BENA40TA45 PO; -BENA40TA46 PO; +FURO-150 PO; -FURO20TA4 PO; +POTA-207 PO; -SPIR25TA5 PO
[2021-09-29] MEDS ORDERED: potassium Cl 20 mEq SR tablet PO STA (13:08)
[2021-09-29] MEDS ORDERED: furosemide 10 MG/1 ML 10ml inj IV ONE (13:10)
[2021-09-29 13:41] LABS: BASOPHILS # (AUTO) 0.1 X10'3 (0-0.2); EOSINOPHILS # (AUTO) 0.1 X10'3 (0-0.9); EOSINOPHILS % (AUTO) 0.8 % (0-6); LYMPHOCYTES # (AUTO) 2.3 X10'3 (1.1-4.8); LYMPHOCYTES % (AUTO) 31.7 % (21-51); MONOCYTES # (AUTO) 0.5 X10'3 (0-0.9); MONOCYTES % (AUTO) 6.3 % (2-12); NEUTROPHILS # (AUTO) 4.4 X10'3 (1.8-7.7); NEUTROPHILS % (AUTO) 60.2 % (42-75); PLATELET COUNT 278 X10'3 (140-440); WHITE BLOOD COUNT 7.3 X10'3 (4.5-11.0)
[2021-09-29 13:55] LABS: ALANINE AMINOTRANSFERASE 47 U/L (12-78); ALBUMIN 2.4 G/DL (3.4-5.0); ALBUMIN/GLOBULIN RATIO 0.6 (1.1-1.5); ALKALINE PHOSPHATASE 103 IU/L (46-116); ANION GAP 13 (8-16); ASPARTATE AMINO TRANSFERASE 28 U/L (10-37); BILIRUBIN,TOTAL 0.4 MG/DL (0.1-1.0); BLOOD UREA NITROGEN 42 MG/DL (7-18); BUN/CREATININE RATIO 21.4 (6.6-38.0); CALCIUM 7.9 MG/DL (8.5-10.1); CHLORIDE 105 MMOL/L (99-107); CREATININE 1.96 MG/DL (0.40-0.90); GLUCOSE 112 MG/DL (70-104); POTASSIUM 3.7 MMOL/L (3.5-5.1); SODIUM 142 MMOL/L (135-145); TOTAL CARBON DIOXIDE 24.3 MMOL/L (24-32); TOTAL PROTEIN 6.6 G/DL (6.4-8.2); eGFR 34 ML/MIN
[2021-09-29 13:58] LABS: HEMATOCRIT 30.4 % (35.0-45.0); HEMOGLOBIN 9.9 g/dl (12.0-16.0); MEAN CORPUSCULAR HEMOGLOBIN 24.1 PG (27.0-31.0); MEAN CORPUSCULAR HGB CONC 32.7 g/dL (33.0-36.5); MEAN CORPUSCULAR VOLUME 73.7 FL (78-98); RED BLOOD COUNT 4.12 X10'6 (4.20-5.60); RED CELL DISTRIBUTION WIDTH 19.6 % (11.5-14.5)
[2021-09-29 14:14] LABS: ANISOCYTOSIS 2+; MICROCYTOSIS 1+; PLATELET ESTIMATE NORMAL
[2021-09-29 14:15] LABS: HYPOCHROMASIA 2+; POLYCHROMASIA FEW
[2021-09-29 14:16] LABS: ELLIPTOCYTES 1+; POIKILOCYTOSIS 1+
[2021-09-29 14:17] LABS: TARGET CELLS 1+
[2021-09-29] MEDS ORDERED: ondansetron/PF 4mg/2ml inj IV ONE (16:10)
[2021-09-29] MEDS ORDERED: morphine 4 MG/ML inj SYRINge IV ONE (16:10)
[2021-09-29] MEDS ORDERED: FURO-150 PO (17:09)
[2021-09-29] MEDS ORDERED: POTA-192 PO (17:09)
[2021-09-29 17:29] VITALS: BP 198/129
== END 2021-09-29 17:31 | disposition home or self-care (01) ==
LOC: ER 12:50
DX: I50.9 Heart failure, unspecified (principal); Z20.822 Contact with and (suspected) exposure to COVID-19; R60.0 Localized edema; R06.02 Shortness of breath; I11.0 Hypertensive heart disease with heart failure; F41.9 Anxiety disorder, unspecified; F17.200 Nicotine dependence, unspecified, uncomplicated; F15.90 Other stimulant use, unspecified, uncomplicated; Z86.718 Personal history of other venous thrombosis and embolism; Z98.51 Tubal ligation status; Z88.6 Allergy status to analgesic agent; Z79.899 Other long term (current) drug therapy
CPT/HCPCS: 36415; 71045; 80053; 83880; 84484; 85008; 85025; 87635; 93005; 93925; 96374; 96375; 99285; C9803; J1940; J2270; J2405

== ENCOUNTER 2021-10-06 05:13 | Inpatient (IN) | payer MEDICAID ==
[~2021-10-06] VITALS: Ht 165.1 cm; Wt 68.2 kg
[~2021-10-06 05:13] MED LIST changes: +POTA-192 PO
[2021-10-06] MEDS ORDERED: furosemide 10 MG/1 ML 10ml inj IV ONE ×2 (05:25→09:10)
[2021-10-06] MEDS ORDERED: nitroGLYCERIN 0.4mg/hour patch TD ONE (05:25)
[2021-10-06] MEDS ORDERED: nitroGLYCERIN 0.4mg SUBLingual tab SL PRN (05:25)
[2021-10-06] MEDS ORDERED: morphine 2 MG/ML inj. syringe IV PRN (05:25)
[2021-10-06] MEDS ORDERED: LORazepam 2 mg/ml vial IV ONE (05:25)
--- NOTE | 2021-10-06 06:32 | NUR ---
Pt restless in bed, fidgeting and asking for ice chips.
--- NOTE | 2021-10-06 06:35 | NUR ---
Lab called, pt's blood hemolyzed. US guided PIV to be attempted and labs will be redrawn.
[2021-10-06 07:36] LABS: BASOPHILS % (AUTO) 0.4 % (0-1); EOSINOPHILS % (AUTO) 0 % (0-6); HEMATOCRIT 30.7 % (35.0-45.0); HEMOGLOBIN 9.5 g/dl (12.0-16.0); LYMPHOCYTES # (AUTO) 1.8 X10'3 (1.1-4.8); LYMPHOCYTES % (AUTO) 17.4 % (21-51); MEAN CORPUSCULAR HEMOGLOBIN 22.6 PG (27.0-31.0); MEAN CORPUSCULAR VOLUME 72.9 FL (78-98); MEAN PLATELET VOLUME 8.5 FL (7.4-10.4); MONOCYTES # (AUTO) 0.7 X10'3 (0-0.9); MONOCYTES % (AUTO) 6.7 % (2-12); NEUTROPHILS # (AUTO) 7.7 X10'3 (1.8-7.7); NEUTROPHILS % (AUTO) 75.5 % (42-75); PLATELET COUNT 329 X10'3 (140-440); RED BLOOD COUNT 4.21 X10'6 (4.20-5.60); RED CELL DISTRIBUTION WIDTH 20.3 % (11.5-14.5); WHITE BLOOD COUNT 10.3 X10'3 (4.5-11.0)
[2021-10-06 07:38] LABS: ALANINE AMINOTRANSFERASE 46 U/L (12-78); ALBUMIN 2.5 G/DL (3.4-5.0); ALBUMIN/GLOBULIN RATIO 0.5 (1.1-1.5); ALKALINE PHOSPHATASE 140 IU/L (46-116); ANION GAP 11 (8-16); ASPARTATE AMINO TRANSFERASE 39 U/L (10-37); BILIRUBIN,TOTAL 0.7 MG/DL (0.1-1.0); BLOOD UREA NITROGEN 42 MG/DL (7-18); BUN/CREATININE RATIO 20.8 (6.6-38.0); CALCIUM 9.1 MG/DL (8.5-10.1); CHLORIDE 103 MMOL/L (99-107); CREATININE 2.02 MG/DL (0.40-0.90); POTASSIUM 4.3 MMOL/L (3.5-5.1); SODIUM 140 MMOL/L (135-145); TOTAL CARBON DIOXIDE 25.7 MMOL/L (24-32); TOTAL PROTEIN 7.2 G/DL (6.4-8.2); eGFR 32 ML/MIN
--- NOTE | 2021-10-06 07:42 | NUR ---
Discussed pt's I&O monitoring with . Received orders for FC placement.
[2021-10-06] MEDS ORDERED: LIDOcaine 2% 10ml TOPICAL JELLY (Urojet) TP ONE (07:45)
[2021-10-06 07:46] LABS: ETHANOL < 0.010 GM/DL (0.0-0.010); MAGNESIUM 1.9 MG/DL (1.5-2.4); PHOSPHORUS 4.6 MG/DL (2.3-4.5)
[2021-10-06 07:47] LABS: GLUCOSE 104 MG/DL (70-104)
[2021-10-06 08:16] LABS: ANISOCYTOSIS 3+; HYPOCHROMASIA 1+; MICROCYTOSIS 1+; PLATELET ESTIMATE NORMAL; TARGET CELLS FEW
[2021-10-06 08:17] LABS: POLYCHROMASIA FEW
[2021-10-06 08:53] LABS: URINE AMPHETAMINE SCREEN NEGATIVE (Neg); URINE BARBITUATE SCREEN NEGATIVE (Neg); URINE BENZODIAZEPINES SCREEN NEGATIVE (Neg); URINE CANNABINOID SCREEN NEGATIVE (Neg); URINE COCAINE SCREEN NEGATIVE (Neg); URINE METHADONE SCREEN NEGATIVE (Neg); URINE OPIATE SCREEN NEGATIVE (Neg); URINE PHENCYCLIDINE SCREEN NEGATIVE (Neg)
--- NOTE | 2021-10-06 09:04 | NUR ---
Pt dozing off with brief periods of apnea while asleep. Desat's to high 80's then wakes up and breathes. Oxygen initiated, EtCO2 monitoring initiated. MD notified.
[2021-10-06] MEDS ORDERED: enalaprilat dihydrate 2.5mg/2ml vial IV ONE ×2 (09:10→13:30)
[2021-10-06] MEDS: nitroGLYCERIN 0.4mg SUBLingual tab SL PRN ×2 (09:17→11:19)
[2021-10-06 10:12] LABS: APTT 28 SECONDS (22-32); D-DIMER 2.66 MG/L FEU (0-0.50)
[2021-10-06] MEDS ORDERED: nitroGLYCERIN-Tridil 50MG/D5W 250 ML IV ONE (10:45)
--- NOTE | 2021-10-06 10:45 | NUR ---
RT came to bedside and left, reported based on their assessment pt did not need positive pressure intervention. Paged again due to pt's brief apneic periods, explained to RT why it was ordered. MD notified of increased troponin, additionally discussed pt's respiratory status and continued HTN with MD. Nitro drip ordered for HTN. Asked MD about ABG prior to CPAP due to pt's decreased EtCO2. No orders for ABG at this time.
--- NOTE | 2021-10-06 11:04 | NUR ---
Nitro patch removed as pt was started on NTG gtt.
--- NOTE | 2021-10-06 11:19 | NUR ---
NTG gtt increased to 30mcg/min and SL NTG given per EDMD Child
--- NOTE | 2021-10-06 11:38 | NUR ---
Per EDMD Child, at 1140 increase NTG to 50mcg/min and increase by 10mcg q 5mins.
--- NOTE | 2021-10-06 12:26 | NUR ---
EDMD Child at bedside, orders to titrate Nitro gtt to 100 mL/hr from 80 mL/hr.
[2021-10-06] MEDS: nitroGLYCERIN-Tridil 50MG/D5W 250 ML IV SCH ×2 (13:20→20:55)
[2021-10-06] MEDS ORDERED: magnesium 2GM in 50ml NS 50 ML IV PRN (13:25)
[2021-10-06] MEDS ORDERED: HYDROcodone/acetaminophen 5mg/325mg tablet PO PRN (13:25)
[2021-10-06] MEDS ORDERED: ipratropium/albuterol 3ml nebule NEB PRN (13:25)
[2021-10-06] MEDS ORDERED: albuterol 2.5 MG/3 ML nebule NEB PRN (13:25)
[2021-10-06] MEDS ORDERED: mag hydrox/Alum hydrox/simeth 30ml oral suspension PO PRN (13:25)
[2021-10-06] MEDS ORDERED: magnesium hydroxide 30ml (MOM) UD suspension PO PRN (13:25)
[2021-10-06] MEDS ORDERED: magnesium 4gm in 100ml NS 100 ML IV PRN (13:25)
[2021-10-06] MEDS ORDERED: potassium CL 10mEq/100ml bag 100 ML IV PRN (13:25)
[2021-10-06] MEDS ORDERED: PERFLUTREN PROTEIN-A MICROSPHR (Optison) 0.22 MG/ML 3ML VIAL IV ONE (13:25)
[2021-10-06] MEDS ORDERED: ondansetron/PF 4mg/2ml inj IV PRN (13:25)
[2021-10-06] MEDS ORDERED: acetaminophen 325mg tablet PO PRN ×2 (13:25)
[2021-10-06] MEDS ORDERED: hydrALAZINE 20mg/ml inj. IV ONE (13:30)
--- NOTE | 2021-10-06 15:22 | NUR ---
Discussed pt's BP and nitro gtt with Dr. Ye. Pt cannot go to PCU at current nitro gtt rate, pt still hypertensive. Orders to reduce nitro gtt to 100 mcg/min, start nicardipine gtt and titrate nitro down.
[2021-10-06] MEDS: niCARDipine-NS 40mg/200ml IVPB 200 ML IV SCH ×4 (16:16→23:10)
--- NOTE | 2021-10-06 16:46 | NUR ---
Echo at bedside.
--- NOTE | 2021-10-06 18:02 | NUR ---
NTG gtt stopped; pt's BP holding in 110's/70's.
[2021-10-06] MEDS: K and/or MAG REPLACEMENT MC SCH (20:00)
[2021-10-06] MEDS: docusate sod 100mg capsule PO SCH (20:00)
[2021-10-06] MEDS: carVEDilol 12.5mg tablet PO SCH (20:55)
[2021-10-06] MEDS: apixaban 5mg tablet PO SCH (20:55)
[2021-10-06] MEDS: furosemide 40mg/4ml inj IV SCH (20:55)
--- NOTE | 2021-10-06 21:00 | NUR ---
CPAP REMOVED AND PT PLACED ON RA. NO DISTRESS NOTED AND OXYGEN SATURATIONS IN THE HIGH 90S
--- NOTE | 2021-10-06 21:36 | NUR ---
CHANDANA GRAHAM RN Addendum: 10/06/21 at 2153 by Elsie Oliver RN CHANDANA GRAHAM RN GAVE REPORT ON PATIENT, PATIENT ON NICARDIPINE DRIP AT 7.5 PER REPORT
--- NOTE | 2021-10-06 21:39 | NUR ---
REPORT CALLED TO KAI ON ACCE. PT GOING TO ROOM 309. WILL BRING PT UP BY BED.
[2021-10-06 22:30] VITALS: BP 128/79
[2021-10-06] MEDS: HYDROcodone/acetaminophen 10/325mg tab PO PRN (22:38)
[2021-10-06 22:45] VITALS: BP 128/79
[2021-10-06 23:00] VITALS: BP 114/79
[2021-10-06 23:15] VITALS: BP 111/71
[2021-10-06 23:30] VITALS: BP 120/75
[2021-10-07] VITALS (12 sets, daily range): BP systolic 98–148; BP diastolic 57–99
[2021-10-07] MEDS: niCARDipine-NS 40mg/200ml IVPB 200 ML IV SCH (01:50)
--- NOTE | 2021-10-07 02:42 | NUR ---
PATIENTS BP TRENDING DOWN FROM 128/79 WHEN ARRIVED TO FLOOR AT 2224; CURRENT BP 105/57. MD MESA CALLED FOR ORDERS. RAMY STATED TO STOP NICARDIPINE GTT. IF PATIENTS BLOOD PRESSURE SUSTAINS ABOVE 140 SYSTOLICALLY, RESTART NICARDIPINE GTT AT 2.5MG/HR. TIARA ARECHIGA
[2021-10-07] MEDS ORDERED: niCARDipine-NS 40mg/200ml IVPB 200 ML IV SCH (02:45)
[2021-10-07] MEDS: nitroGLYCERIN-Tridil 50MG/D5W 250 ML IV SCH ×3 (04:30→19:40)
--- NOTE | 2021-10-07 06:34 | NUR ---
Problems reprioritized. Patient report given, questions answered & plan of care reviewed with AROLDO RN.
[2021-10-07 07:16] LABS: BASOPHILS % (AUTO) 0.4 % (0-1); EOSINOPHILS % (AUTO) 0.1 % (0-6); HEMATOCRIT 28.1 % (35.0-45.0); HEMOGLOBIN 8.7 g/dl (12.0-16.0); LYMPHOCYTES # (AUTO) 1.7 X10'3 (1.1-4.8); LYMPHOCYTES % (AUTO) 17.7 % (21-51); MEAN CORPUSCULAR HEMOGLOBIN 22.2 PG (27.0-31.0); MEAN CORPUSCULAR HGB CONC 31.1 g/dL (33.0-36.5); MEAN CORPUSCULAR VOLUME 71.4 FL (78-98); MEAN PLATELET VOLUME 8.5 FL (7.4-10.4); MONOCYTES # (AUTO) 0.8 X10'3 (0-0.9); MONOCYTES % (AUTO) 8.3 % (2-12); NEUTROPHILS % (AUTO) 73.5 % (42-75); PLATELET COUNT 295 X10'3 (140-440); RED BLOOD COUNT 3.93 X10'6 (4.20-5.60); RED CELL DISTRIBUTION WIDTH 20.6 % (11.5-14.5); WHITE BLOOD COUNT 9.5 X10'3 (4.5-11.0)
[2021-10-07 07:49] LABS: PLATELET ESTIMATE NORMAL
[2021-10-07 07:50] LABS: ANISOCYTOSIS 3+; HYPOCHROMASIA 1+; MICROCYTOSIS 1+; POIKILOCYTOSIS FEW; TARGET CELLS 1+
[2021-10-07 07:52] LABS: ALANINE AMINOTRANSFERASE 36 U/L (12-78); ALBUMIN 2.3 G/DL (3.4-5.0); ALBUMIN/GLOBULIN RATIO 0.6 (1.1-1.5); ALKALINE PHOSPHATASE 123 IU/L (46-116); ANION GAP 13 (8-16); ASPARTATE AMINO TRANSFERASE 32 U/L (10-37); BILIRUBIN,TOTAL 1.1 MG/DL (0.1-1.0); BLOOD UREA NITROGEN 33 MG/DL (7-18); BUN/CREATININE RATIO 21.3 (6.6-38.0); CALCIUM 8.3 MG/DL (8.5-10.1); CHLORIDE 102 MMOL/L (99-107); CREATININE 1.55 MG/DL (0.40-0.90); GLUCOSE 81 MG/DL (70-104); MAGNESIUM 1.5 MG/DL (1.5-2.4); SODIUM 143 MMOL/L (135-145); TOTAL CARBON DIOXIDE 28.3 MMOL/L (24-32); TOTAL PROTEIN 6.4 G/DL (6.4-8.2); eGFR 44 ML/MIN
[2021-10-07 08:07] LABS: POTASSIUM 2.8 MMOL/L (3.5-5.1)
--- NOTE | 2021-10-07 08:14 | NUR ---
Page Sent PAGER ID: [phone] MESSAGE: Jorge Miguel 309 critical lab value K 2.8 FYI. -Vaishali Student Nurse Ext: [phone]
[2021-10-07] MEDS: K and/or MAG REPLACEMENT MC SCH ×2 (08:20→19:57)
[2021-10-07] MEDS: furosemide 40mg/4ml inj IV SCH ×2 (08:27→19:56)
[2021-10-07] MEDS: docusate sod 100mg capsule PO SCH ×2 (08:29→20:00)
[2021-10-07] MEDS: potassium Cl 20 mEq SR tablet PO PRN ×4 (08:29→16:34)
[2021-10-07] MEDS: lisinopril 20mg tablet PO SCH (08:29)
[2021-10-07] MEDS: carVEDilol 12.5mg tablet PO SCH ×2 (08:29→19:56)
[2021-10-07] MEDS: apixaban 5mg tablet PO SCH ×2 (08:29→19:55)
[2021-10-07] MEDS: HYDROcodone/acetaminophen 10/325mg tab PO PRN ×3 (08:49→20:17)
--- NOTE | 2021-10-07 14:57 | NUR ---
Lunch recorded on 10/06 at 1400 was accidental, meant to do 10/07 at 1400.
--- NOTE | 2021-10-07 18:00 | NUR ---
Patient in room MED 309. I have received report from AROLDO ARECHIGA and had the opportunity to ask questions and assume patient care.
--- NOTE | 2021-10-07 22:30 | NUR ---
PATIENT BECOMING HYPERTENSIVE; HAD CONVERSATION WITH PATIENT REGARDING USAGE OF FENTANYL PRIIOR TO HOSPITAL ADMISSION. PATIENT APPEARS TO BE HAVING WITHDRAWALS. PATIENT STATED SHE HAS OUTSIDE PROVIDER/CLINIC ASSISTING WITH WITHDRAWL MEDICATION, THOUGH PATIENT CANNOT RECALL DRUG GIVEN FOR WITHDRAWL/ADDICTION. CALLED MD TO GET PRN MEDICATION FOR HTN. CLONIDINE 0.1 MG Q6H PRN ORDERED. PATIENT ASMINISTERED DRUG, WILL RECHECK AND MONITOR FOR BLOOD PRESSURE CHANGES. WILL GET CONSULT FOR MOTOR POWER CONNECTOR.TIARA.
[2021-10-07] MEDS: cloNIDine 0.1 mg tablet PO PRN (23:00)
[2021-10-08] MEDS: HYDROcodone/acetaminophen 10/325mg tab PO PRN ×3 (00:28→09:27)
--- NOTE | 2021-10-08 00:30 | NUR ---
PATIENTS BLOOD PRESSURE 164/109-CALLED B[facility]ITA TO INQUIRE ABOUT BLOOD PRESSURE MANAGEMENT; HE STATED TO REMOVE TRIDIL GTT FROM EMAR PER ROBACK ORDERS, SBP IN 160'S ACCEPTABLE, CONTINUE CLONIDINE FOR BP MANAGEMENT. MONITOR BP FOR CHANGES. TIARA ARECHIGA
[2021-10-08 02:00] VITALS: BP 171/104
[2021-10-08] MEDS: cloNIDine 0.1 mg tablet PO PRN (05:05)
--- NOTE | 2021-10-08 05:19 | NUR ---
BP 191/123 MAP 146. PATIENT THRASHING ALL NIGHT. CLONIDINE GIVEN. MD GONCALVES. TIARA RN
[2021-10-08 06:00] VITALS: BP 177/118
--- NOTE | 2021-10-08 06:01 | NUR ---
Problems reprioritized. Patient report given, questions answered & plan of care reviewed with AROLDO RN.
[2021-10-08 06:54] LABS: BASOPHILS % (AUTO) 0.3 % (0-1); EOSINOPHILS % (AUTO) 0.2 % (0-6); HEMATOCRIT 26.9 % (35.0-45.0); HEMOGLOBIN 8.4 g/dl (12.0-16.0); LYMPHOCYTES # (AUTO) 1.8 X10'3 (1.1-4.8); LYMPHOCYTES % (AUTO) 25.5 % (21-51); MEAN CORPUSCULAR HEMOGLOBIN 22.4 PG (27.0-31.0); MEAN CORPUSCULAR HGB CONC 31.4 g/dL (33.0-36.5); MEAN CORPUSCULAR VOLUME 71.3 FL (78-98); MEAN PLATELET VOLUME 8.3 FL (7.4-10.4); MONOCYTES # (AUTO) 0.5 X10'3 (0-0.9); MONOCYTES % (AUTO) 6.6 % (2-12); NEUTROPHILS # (AUTO) 4.8 X10'3 (1.8-7.7); NEUTROPHILS % (AUTO) 67.4 % (42-75); PLATELET COUNT 237 X10'3 (140-440); RED BLOOD COUNT 3.77 X10'6 (4.20-5.60); RED CELL DISTRIBUTION WIDTH 20.8 % (11.5-14.5); WHITE BLOOD COUNT 7.1 X10'3 (4.5-11.0)
--- NOTE | 2021-10-08 06:57 | NUR ---
Pt is trying to take O2 sensor and leads off stating she going to leave AMA because she wants to go smoke. Educated pt about her blood pressure and the dangers of leaving hospital. Pt says she will leave with the bolivar or remove it herslef. Paged Page Sent PAGER ID: [phone] MESSAGE: Pt Breonna Rosado in rm 309 is leaving AMA. She is trying to pull out bolivar herself. I am removing. [facility] ACCE [id number]
--- NOTE | 2021-10-08 07:00 | NUR ---
Page Accepted Message: Pt Alexsander Mozier Room 309 is wanting to leave AMA. She admitted to using fentanyl daily before admission. She is refusing to keep leads on last BP at 0600 was 177/118. She only has 0.1 of clonidine, maybe some Ativan? [facility] ACCE [id number]
--- NOTE | 2021-10-08 07:22 | NUR ---
Page Sent PAGER ID: [phone] MESSAGE: Pt [facility] Room 309 is willing to stay to speak with you. She admitted to using fentanyl daily so she is withdrawing. She only has 0.[address] [facility] ACCE 0498
[2021-10-08 07:42] LABS: ALANINE AMINOTRANSFERASE 33 U/L (12-78); ALBUMIN 2.1 G/DL (3.4-5.0); ALBUMIN/GLOBULIN RATIO 0.6 (1.1-1.5); ALKALINE PHOSPHATASE 96 IU/L (46-116); ANION GAP 12 (8-16); ASPARTATE AMINO TRANSFERASE 34 U/L (10-37); BILIRUBIN,TOTAL 0.7 MG/DL (0.1-1.0); BLOOD UREA NITROGEN 27 MG/DL (7-18); CALCIUM 8.2 MG/DL (8.5-10.1); CHLORIDE 103 MMOL/L (99-107); CREATININE 1.42 MG/DL (0.40-0.90); GLUCOSE 108 MG/DL (70-104); MAGNESIUM 1.4 MG/DL (1.5-2.4); POTASSIUM 3.4 MMOL/L (3.5-5.1); SODIUM 145 MMOL/L (135-145); TOTAL CARBON DIOXIDE 30.2 MMOL/L (24-32); TOTAL PROTEIN 5.9 G/DL (6.4-8.2); eGFR 49 ML/MIN
[2021-10-08 07:43] LABS: % IRON SATURATION 5 % (11-46); IRON 15 UG/DL (49-151); TOTAL IRON BINDING CAPACITY 314 UG/DL (259-388)
[2021-10-08] MEDS ORDERED: nicotine 14mg patch - 24hr TD SCH (08:00)
[2021-10-08] MEDS: K and/or MAG REPLACEMENT MC SCH (08:00)
[2021-10-08 09:19] LABS: PLATELET ESTIMATE NORMAL
[2021-10-08 09:20] LABS: ANISOCYTOSIS 3+; HYPOCHROMASIA 1+; MICROCYTOSIS 1+; POLYCHROMASIA 1+; STOMATOCYTES 1+
[2021-10-08] MEDS: furosemide 40mg/4ml inj IV SCH (09:25)
[2021-10-08] MEDS: docusate sod 100mg capsule PO SCH (09:25)
[2021-10-08] MEDS: apixaban 5mg tablet PO SCH (09:25)
[2021-10-08] MEDS: lisinopril 20mg tablet PO SCH (09:26)
[2021-10-08] MEDS: carVEDilol 12.5mg tablet PO SCH (09:27)
[2021-10-08] MEDS ORDERED: hyDRALAzine 10mg tablet PO SCH (09:30)
[2021-10-08] MEDS ORDERED: sodium ferric gluc complex inj 125 MG in normal saline 100ml IV soln 100 ML IV SCH (09:30)
[2021-10-08 10:00] VITALS: BP 162/102
--- NOTE | 2021-10-08 10:30 | NUR ---
pt left hospital AMA. Educated pt on the risks and consequences in leaving. Pt fully understands and agrees to accept the risks in leaving, and she signed the AMA paperwork. IVs removed in bilateral AC and bolivar removed. Pt left with all her belongings (purse, cell phone, white robe, green skirt and white tank top. Pt did not have any shoes and wore the hospital socks out. MD cain.
--- NOTE | 2021-10-08 10:35 | NUR ---
Pt left AMA Page Accepted Message: Pt Albert Miguel in Rm 309 just left AMA. AMA paper signed, Areli and osmel out. Was able to get pt to take AM meds except Iron infusion.
== END 2021-10-08 10:30 | disposition left against medical advice (07) | DRG 199 ==
LOC: ER 05:13 → ED HOLD 13:27 → MED 3N 22:24
PROVIDERS: ADMIT Family Medicine; ATTEND Family Medicine
DX: I16.1 Hypertensive emergency (principal); I50.23 Acute on chronic systolic (congestive) heart failure; I21.A1 Myocardial infarction type 2; I42.0 Dilated cardiomyopathy; F15.10 Other stimulant abuse, uncomplicated; D50.9 Iron deficiency anemia, unspecified; E78.00 Pure hypercholesterolemia, unspecified; E87.6 Hypokalemia; F17.210 Nicotine dependence, cigarettes, uncomplicated; N18.4 Chronic kidney disease, stage 4 (severe); I13.0 Hypertensive heart and chronic kidney disease with heart failure and stage 1 through stage 4 chronic kidney disease, or unspecified chronic kidney disease; R00.0 Tachycardia, unspecified; F41.9 Anxiety disorder, unspecified; Z53.29 Procedure and treatment not carried out because of patient's decision for other reasons; Z82.49 Family history of ischemic heart disease and other diseases of the circulatory system; Z86.711 Personal history of pulmonary embolism; Z98.51 Tubal ligation status; Z88.6 Allergy status to analgesic agent; Z86.718 Personal history of other venous thrombosis and embolism; Z79.899 Other long term (current) drug therapy
CPT/HCPCS: 36415; 71045; 80053; 80305; 80320; 83540; 83550; 83735; 83880; 84100; 84484; 85008; 85025; 85379; 85610; 85730; 87081; 93005; 93306; 93970; 94660; 94760; 96374; 96375; 99291; G0378; J0360; J1940; J2060; J2270; J3490

== ENCOUNTER 2021-10-25 01:55 | Inpatient (IN) | payer MEDICAID ==
[~2021-10-25] VITALS: Ht 180.3 cm; Wt 175.0 kg
[~2021-10-25 01:55] MED LIST changes: -POTA-192 PO
--- NOTE | 2021-10-25 04:11 | NUR ---
STREET LIGHT WIRER UNSUCCESSFULLY ATTEMPTED TO DRAW LABS THREE TIMES. RN UNSUCCESFULLY ATTEMPTED TO DRAW LABS X2. SECOND RN IN ROOM ATTEMPTING TO DRAW LABS.
--- NOTE | 2021-10-25 04:25 | NUR ---
BLOOD SENT WITH SOUVENIR ASSEMBLER
[2021-10-25 04:51] LABS: BASOPHILS # (AUTO) 0.1 X10'3 (0-0.2); BASOPHILS % (AUTO) 1.1 % (0-1); EOSINOPHILS # (AUTO) 0.1 X10'3 (0-0.9); EOSINOPHILS % (AUTO) 0.8 % (0-6); HEMATOCRIT 29.7 % (35.0-45.0); HEMOGLOBIN 9.1 g/dl (12.0-16.0); LYMPHOCYTES # (AUTO) 2.8 X10'3 (1.1-4.8); LYMPHOCYTES % (AUTO) 33.5 % (21-51); MEAN CORPUSCULAR HEMOGLOBIN 21.4 PG (27.0-31.0); MEAN CORPUSCULAR HGB CONC 30.5 g/dL (33.0-36.5); MEAN CORPUSCULAR VOLUME 70.3 FL (78-98); MEAN PLATELET VOLUME 7.8 FL (7.4-10.4); MONOCYTES # (AUTO) 0.4 X10'3 (0-0.9); MONOCYTES % (AUTO) 4.5 % (2-12); NEUTROPHILS % (AUTO) 60.1 % (42-75); PLATELET COUNT 391 X10'3 (140-440); RED BLOOD COUNT 4.23 X10'6 (4.20-5.60); RED CELL DISTRIBUTION WIDTH 21.6 % (11.5-14.5); WHITE BLOOD COUNT 8.3 X10'3 (4.5-11.0)
[2021-10-25 04:53] LABS: ALANINE AMINOTRANSFERASE 28 U/L (12-78); ALBUMIN 2.6 G/DL (3.4-5.0); ALBUMIN/GLOBULIN RATIO 0.5 (1.1-1.5); ALKALINE PHOSPHATASE 119 IU/L (46-116); ANION GAP 8 (8-16); ASPARTATE AMINO TRANSFERASE 35 U/L (10-37); BILIRUBIN,TOTAL 0.3 MG/DL (0.1-1.0); BLOOD UREA NITROGEN 23 MG/DL (7-18); BUN/CREATININE RATIO 21.9 (6.6-38.0); CALCIUM 8.6 MG/DL (8.5-10.1); CHLORIDE 107 MMOL/L (99-107); CREATININE 1.05 MG/DL (0.40-0.90); GLUCOSE 87 MG/DL (70-104); POTASSIUM 3.1 MMOL/L (3.5-5.1); SODIUM 142 MMOL/L (135-145); TOTAL PROTEIN 7.6 G/DL (6.4-8.2); eGFR 69 ML/MIN
[2021-10-25] MEDS ORDERED: potassium Cl 20 mEq SR tablet PO STA (04:58)
[2021-10-25] MEDS ORDERED: furosemide 10 MG/1 ML 10ml inj IV ONE (05:00)
[2021-10-25] MEDS ORDERED: morphine 4 MG/ML inj SYRINge IV ONE ×2 (05:15→07:35)
--- NOTE | 2021-10-25 06:50 | NUR ---
Found pt sitting on the commode. Pt c/o of B LE pain.
[2021-10-25] MEDS ORDERED: morphine 4 MG/ML inj SYRINge IM ONE (07:20)
--- NOTE | 2021-10-25 07:42 | NUR ---
Pt repositioned in bed. B LE elevated. Sure Wick applied.
[2021-10-25 08:36] LABS: ANISOCYTOSIS 3+; ELLIPTOCYTES 1+; HYPOCHROMASIA 1+; MICROCYTOSIS 1+; PLATELET ESTIMATE NORMAL; POIKILOCYTOSIS FEW; POLYCHROMASIA FEW; STOMATOCYTES FEW; TARGET CELLS FEW
[2021-10-25] MEDS ORDERED: potassium Cl 20 mEq SR tablet PO PRN (09:05)
[2021-10-25] MEDS ORDERED: ondansetron/PF 4mg/2ml inj IV PRN (09:05)
[2021-10-25] MEDS ORDERED: magnesium Cl slow-release 64mg tablet PO PRN (09:05)
[2021-10-25] MEDS ORDERED: magnesium 4gm in 100ml NS 100 ML IV PRN (09:05)
[2021-10-25] MEDS ORDERED: magnesium 2GM in 50ml NS 50 ML IV PRN (09:05)
[2021-10-25] MEDS ORDERED: acetaminophen 325mg tablet PO PRN (09:05)
[2021-10-25] MEDS ORDERED: potassium CL 10mEq/100ml bag 100 ML IV PRN (09:05)
--- NOTE | 2021-10-25 10:00 | NUR ---
Pt had a large formed BM.
--- NOTE | 2021-10-25 10:23 | NUR ---
NURSING FISHERIES SPECIALIST CALLED REGARDING PT'S BP PRIOR TO BED ASSIGNEMENT OF 210/128. BP RETAKEN; 193/128, NURSING FISHERIES SPECIALIST NOTIFIED AND REQUESTED THAT HOSPITALIST BE INFORMED. DR MARINA WHITE. Addendum: 10/25/[address] NEWTON RETURNED PAGE, ORDER FOR 10MG HYDRALAZINE IV x1 GIVEN. WAS UNABLE TO PLACE ORDER UNDER DR NEWTON'S NAME AND CONSULTED DR GARCIA WHO PLACED NEW MEDICATION ORDER ALONG WITH AN ADDITIONAL MEDICATION FOR PT'S ELEVATED BY; CARVEDILOL 25MG PO x1.
[2021-10-25] MEDS ORDERED: hyDRALAzine 10mg tablet PO SCH (10:50)
[2021-10-25] MEDS ORDERED: hydrALAZINE 20mg/ml inj. IV ONE (10:50)
[2021-10-25] MEDS ORDERED: carVEDilol 12.5mg tablet PO ONE (10:55)
--- NOTE | 2021-10-25 12:12 | NUR ---
Report given to GENI Banuelos in PCU.
--- NOTE | 2021-10-25 12:50 | NUR ---
Paged hospitalist: PAGER ID: [phone] MESSAGE: Room: 3009: Myriam: Pt's reporting 10/10 BLE pain. I'd like to request morphine pain medicine. The pt states that this helped with her pain in the ED. Lakisha RN 0019
[2021-10-25 12:53] VITALS: BP 161/105
[2021-10-25 12:57] LABS: MAGNESIUM 1.7 MG/DL (1.5-2.4)
--- NOTE | 2021-10-25 13:00 | NUR ---
PAGER ID: [phone] MESSAGE: Re: Albert Miguel. Room: 3009. Pt has no PRN pain meds. Pt complaining pf severe smiley leg pain. Received Morphine in ED and it helped. -[facility] #[id number] -Dr. Demarco paged concerning Pt's pain level.
[2021-10-25] MEDS: HYDROcodone/acetaminophen 10/325mg tab PO PRN ×2 (13:14→20:23)
[2021-10-25] MEDS: potassium Cl 20 mEq SR tablet PO PRN ×3 (13:15→23:38)
[2021-10-25] MEDS ORDERED: POTA-82 PO (13:55)
[2021-10-25] MEDS ORDERED: BENA40TA90 PO (13:55)
[2021-10-25] MEDS ORDERED: APIX5TAB3 PO (13:55)
[2021-10-25] MEDS ORDERED: CARV25TA2 PO (13:55)
[2021-10-25] MEDS ORDERED: FURO20TA4 PO (13:55)
[2021-10-25 15:00] VITALS: BP 163/120
--- NOTE | 2021-10-25 17:18 | NUR ---
PAGER ID: [phone] MESSAGE: Re: Albert Miguel. Room: Pt's home med rec complete and ready to be reviewed. -[facility] #[id number] -Dr. Demarco paged concerning pt's home med rec.
--- NOTE | 2021-10-25 17:40 | NUR ---
PAGER ID: [phone] MESSAGE: Re: Albert Miguel. Room: Pt's current BP is 200/118. No scheduled or PRN blood pressure meds ordered. -[facility] #[id number] -Dr. Demarco paged concerning pt's BP
[2021-10-25] MEDS: hydrALAZINE 20mg/ml inj. IV PRN (17:56)
--- NOTE | 2021-10-25 18:00 | NUR ---
Orientee documentation: I have reviewed and agree with all interventions, assessments performed and documented by Lakisha Montgomery RN.
--- NOTE | 2021-10-25 18:33 | NUR ---
Problems reprioritized. Patient report given, questions answered & plan of care reviewed with Vanessa ARECHIGA.
--- NOTE | 2021-10-25 18:34 | NUR ---
Problems reprioritized. Patient report given, questions answered & plan of care reviewed with GENI Mendez.
[2021-10-25] MEDS ORDERED: K and/or MAG REPLACEMENT MC SCH (20:00)
[2021-10-25] MEDS ORDERED: apixaban 5mg tablet PO SCH (20:00)
[2021-10-25] MEDS ORDERED: carVEDilol 12.5mg tablet PO SCH (20:00)
[2021-10-25] MEDS ORDERED: furosemide 40mg/4ml inj IV SCH (20:00)
[2021-10-26 02:36] VITALS: BP_SYST 193
[2021-10-26] MEDS: hydrALAZINE 20mg/ml inj. IV PRN (02:36)
[2021-10-26] MEDS: HYDROcodone/acetaminophen 10/325mg tab PO PRN (02:37)
--- NOTE | 2021-10-26 03:39 | NUR ---
0245 patient complaining of pain and BP was elevated, administered pain medication PO and hydralazine . patient verbalized she would like to go home and have a cigarette, risks of leaving before discharge was explained to patient. 0300 while changing the patient i found a pipe at her groin area that seems to be used for drugs also found patient with a pottery decoration designer and was also protective of her purse. security notified around 0310. in the presence of security, I requested patient if i could go through her purse. Patient refused and verbalized she was going home. patient quickly changed to her clothes and peripheral iv was taken out and a dressing placed patient a patient collected her belongings and was escorted out of the building by the security.
--- NOTE | 2021-10-26 03:59 | NUR ---
Dr. Rosas notified of patient leaving AMA and pt signed AMA form
[2021-10-26] MEDS ORDERED: lisinopril 20mg tablet PO SCH (08:00)
[2021-10-26] MEDS ORDERED: potassium chloride 10mEq ER tablet PO SCH (08:00)
== END 2021-10-26 03:30 | disposition left against medical advice (07) | DRG 194 ==
LOC: ER 01:56 → ED HOLD 09:05 → PCU 3S 12:40
PROVIDERS: ADMIT Internal Medicine; ATTEND Internal Medicine
DX: I13.0 Hypertensive heart and chronic kidney disease with heart failure and stage 1 through stage 4 chronic kidney disease, or unspecified chronic kidney disease (principal); L97.919 Non-pressure chronic ulcer of unspecified part of right lower leg with unspecified severity; N18.9 Chronic kidney disease, unspecified; I50.23 Acute on chronic systolic (congestive) heart failure; E78.00 Pure hypercholesterolemia, unspecified; G89.29 Other chronic pain; F11.20 Opioid dependence, uncomplicated; E78.5 Hyperlipidemia, unspecified; L97.929 Non-pressure chronic ulcer of unspecified part of left lower leg with unspecified severity; F41.9 Anxiety disorder, unspecified; Z20.822 Contact with and (suspected) exposure to COVID-19; Z53.29 Procedure and treatment not carried out because of patient's decision for other reasons; F17.210 Nicotine dependence, cigarettes, uncomplicated; Z98.51 Tubal ligation status; Z82.49 Family history of ischemic heart disease and other diseases of the circulatory system; Z86.718 Personal history of other venous thrombosis and embolism; Z79.899 Other long term (current) drug therapy
CPT/HCPCS: 36415; 71045; 80053; 83735; 83880; 84132; 84484; 85008; 85025; 87081; 87635; 93005; 96374; 96375; 96376; 99285; C9803; G0378; J0360; J1940; J2270